=== PATIENT | male | born 1960 | race Caucasian/White ===

== ENCOUNTER → 2016-10-01 | Outpatient (CLI) | payer BC ==
[2016-10-01 18:34] LABS: Basophils % (A) 0 %; CH 32.6; CHCM 32.6; Eosinophils # (A) 0.4 k/uL (0-0.7); Eosinophils % (A) 6 %; HDW 2.27; HGB 16.3 gm/dL (13.0-17.5); Luc # (Auto) 0.16; Luc % (Auto) 3; Lymphocytes # (A) 1.8 k/uL (1.0-4.8); Lymphocytes % (A) 29 %; MCH 32.8 pg (25.0-35.0); MCHC 32.7 g/dL (31.0-37.0); MCV 100.4 fL (80.0-100.0); Mean Platelet Volume 7.8; Monocytes # (A) 0.6 k/uL (0-1.0); Monocytes % (A) 9 %; Neutrophils # (A) 3.3 k/uL (1.3-7.7); Neutrophils % (A) 53 %; RBC 4.98 m/uL (4.30-5.90); RDW 13.4 % (11.5-15.5); WBC 6.2 k/uL (3.8-10.6)
[2016-10-01 19:01] LABS: ALT 35 U/L (21-72); AST 26 U/L (17-59); Alkaline Phosphatase 109 U/L (38-126); Anion Gap 12 mmol/L; Blood Urea Nitrogen 31 mg/dL (9-20); Calcium 9.3 mg/dL (8.4-10.2); Carbon Dioxide 28 mmol/L (22-30); Chloride 102 mmol/L (98-107); Cholesterol 147 mg/dL (<200); Glucose 103 mg/dL (74-99); HDL Cholesterol 51 mg/dL (40-60); Non-African American GFR(MDRD) >60 (>60 ml/min/1.73 sqM); Potassium 3.7 mmol/L (3.5-5.1); Sodium 142 mmol/L (137-145); Total Bilirubin 1.1 mg/dL (0.2-1.3); Total Protein 6.8 g/dL (6.3-8.2); Triglycerides 126 mg/dL (<150)
[2016-10-01 19:33] LABS: Vitamin B12 382 pg/mL (239-931)
== END ==
LOC: MMGSC 15:31
PROVIDERS: ATTEND Family Medicine
DX: I10 Essential (primary) hypertension (principal); R53.83 Other fatigue; N40.0 Benign prostatic hyperplasia without lower urinary tract symptoms; Z12.5 Encounter for screening for malignant neoplasm of prostate
CPT/HCPCS: 84439; 80053; 80061; 82607; 84443; 85025; 82306; 36415; G0103

== ENCOUNTER 2016-10-07 07:10 | Emergency (ER) | payer BC ==
[2016-10-07 12:41] LABS: Creatine Kinase MB 2.3 ng/mL (0.0-2.4); Troponin I 0.022 ng/mL (0.000-0.034)
[2016-10-07 12:42] LABS: ALT 40 U/L (21-72); AST 29 U/L (17-59); Alkaline Phosphatase 105 U/L (38-126); Anion Gap 10 mmol/L; Blood Urea Nitrogen 21 mg/dL (9-20); Calcium 8.8 mg/dL (8.4-10.2); Carbon Dioxide 26 mmol/L (22-30); Chloride 106 mmol/L (98-107); Glucose 93 mg/dL (74-99); Non-African American GFR(MDRD) >60 (>60 ml/min/1.73 sqM); Potassium 4.2 mmol/L (3.5-5.1); Sodium 142 mmol/L (137-145); Total Bilirubin 0.6 mg/dL (0.2-1.3); Total Protein 6.9 g/dL (6.3-8.2)
--- NOTE | 2016-10-07 13:00 | XR ---
EXAMINATION TYPE: XR chest 2V DATE OF EXAM: 10/07/2016 COMPARISON: Prior chest x-ray 10/01/2016 HISTORY: Chest pain and shortness of breath TECHNIQUE: Frontal and lateral views of the chest are obtained. FINDINGS: Interstitium is increased. Heart size is thought to be borderline although patient is rota luis. There are overlying cardiac leads. No pneumothorax or pleural effusion. IMPRESSION: Correlate to exclude pulmonary venous hypertension and interstitial edema. Changes have occurred in the interval. Follow-up recommended.
[2016-10-07 13:09] LABS: Basophils % (A) 1 %; CH 31.8; CHCM 32.8; Eosinophils # (A) 0.3 k/uL (0-0.7); Eosinophils % (A) 3 %; HCT 46.6 % (39.0-53.0); HDW 2.42; HGB 16.3 gm/dL (13.0-17.5); Luc # (Auto) 0.15; Luc % (Auto) 2; Lymphocytes # (A) 1.9 k/uL (1.0-4.8); Lymphocytes % (A) 22 %; MCH 34.1 pg (25.0-35.0); MCHC 35.1 g/dL (31.0-37.0); MCV 97.4 fL (80.0-100.0); Mean Platelet Volume 8.1; Monocytes # (A) 0.4 k/uL (0-1.0); Monocytes % (A) 4 %; Neutrophils # (A) 5.9 k/uL (1.3-7.7); Neutrophils % (A) 68 %; RBC 4.78 m/uL (4.30-5.90); WBC 8.7 k/uL (3.8-10.6); WBC (Perox) 8.76
[2016-10-07 13:14] LABS: Partial Thromboplastin Time 25.3 sec (22.0-30.0); Prothrombin Time 10.1 sec (9.0-12.0)
--- NOTE | 2016-10-07 15:51 | ED ---
Medical Decision Making - Medical Decision Making The patient came injury computer downtime and several hours after he was discharged. Patient did have a d-dimer run. The result was 2.52. This was called to the emergency department. Attempt to call the patient back for evaluation as well as for failed. Messages have been left on his answering machine. We will continue to try to contact the patient. The patient's presentation today a CAT scan of the chest would be warranted the CT angiogram. - Lab Data Result diagrams: 10/07/16 07:30 10/07/16 07:30 Lab Results 10/07/16 10/07/16 10/07/16 Range/Units 07:30 07:30 07:30 WBC 8.7 (3.8-10.6) k/uL RBC 4.78 (4.30-5.90) m/uL Hgb 16.3 (13.0-17.5) gm/dL Hct 46.6 (39.0-53.0) % MCV 97.4 (80.0-100.0) fL MCH 34.1 (25.0-35.0) pg MCHC 35.1 (31.0-37.0) g/dL RDW 13.0 (11.5-15.5) % Plt Count 220 (150-450) k/uL Neutrophils % 68 % Lymphocytes % 22 % Monocytes % 4 % Eosinophils % 3 % Basophils % 1 % Neutrophils # 5.9 (1.3-7.7) k/uL Lymphocytes # 1.9 (1.0-4.8) k/uL Monocytes # 0.4 (0-1.0) k/uL Eosinophils # 0.3 (0-0.7) k/uL Basophils # 0.0 (0-0.2) k/uL PT (9.0-12.0) sec INR (<1.1) APTT (22.0-30.0) sec D-Dimer (<0.60) mg/L FEU Sodium 142 (137-145) mmol/L Potassium 4.2 (3.5-5.1) mmol/L Chloride 106 (98-107) mmol/L Carbon Dioxide 26 (22-30) mmol/L Anion Gap 10 mmol/L BUN 21 H (9-20) mg/dL Creatinine 1.10 (0.66-1.25) mg/dL Est GFR (MDRD) Af Amer >60 (>60 ml/min/1.73 sqM) Est GFR (MDRD) Non-Af >60 (>60 ml/min/1.73 sqM) Glucose 93 (74-99) mg/dL Calcium 8.8 (8.4-10.2) mg/dL Magnesium 2.0 (1.6-2.3) mg/dL Total Bilirubin 0.6 (0.2-1.3) mg/dL AST 29 (17-59) U/L ALT 40 (21-72) U/L Alkaline Phosphatase 105 (38-126) U/L Total Creatine Kinase 99 (55-170) U/L CK-MB (CK-2) 2.3 (0.0-2.4) ng/mL CK-MB (CK-2) Rel Index 2.3 Troponin I 0.022 (0.000-0.034) ng/mL NT-Pro-B Natriuret Pep pg/mL Total Protein 6.9 (6.3-8.2) g/dL Albumin 3.8 (3.5-5.0) g/dL 10/07/16 10/07/16 Range/Units 07:30 07:30 WBC (3.8-10.6) k/uL RBC (4.30-5.90) m/uL Hgb (13.0-17.5) gm/dL Hct (39.0-53.0) % MCV (80.0-100.0) fL MCH (25.0-35.0) pg MCHC (31.0-37.0) g/dL RDW (11.5-15.5) % Plt Count (150-450) k/uL Neutrophils % % Lymphocytes % % Monocytes % % Eosinophils % % Basophils % % Neutrophils # (1.3-7.7) k/uL Lymphocytes # (1.0-4.8) k/uL Monocytes # (0-1.0) k/uL Eosinophils # (0-0.7) k/uL Basophils # (0-0.2) k/uL PT 10.1 (9.0-12.0) sec INR 1.0 (<1.1) APTT 25.3 (22.0-30.0) sec D-Dimer 2.52 H (<0.60) mg/L FEU Sodium (137-145) mmol/L Potassium (3.5-5.1) mmol/L Chloride (98-107) mmol/L Carbon Dioxide (22-30) mmol/L Anion Gap mmol/L BUN (9-20) mg/dL Creatinine (0.66-1.25) mg/dL Est GFR (MDRD) Af Amer (>60 ml/min/1.73 sqM) Est GFR (MDRD) Non-Af (>60 ml/min/1.73 sqM) Glucose (74-99) mg/dL Calcium (8.4-10.2) mg/dL Magnesium (1.6-2.3) mg/dL Total Bilirubin (0.2-1.3) mg/dL AST (17-59) U/L ALT (21-72) U/L Alkaline Phosphatase (38-126) U/L Total Creatine Kinase (55-170) U/L CK-MB (CK-2) (0.0-2.4) ng/mL CK-MB (CK-2) Rel Index Troponin I (0.000-0.034) ng/mL NT-Pro-B Natriuret Pep 872 pg/mL Total Protein (6.3-8.2) g/dL Albumin (3.5-5.0) g/dL Disposition Clinical Impression: Elevated d-dimer Disposition: HOME SELF-CARE Condition: Stable Referrals: Carmina Hewitt MD [Primary Care Provider] - 1-2 days
== END 2016-10-07 11:36 | disposition home or self-care (01) ==
LOC: EC 07:10
DX: J44.1 Chronic obstructive pulmonary disease with (acute) exacerbation (principal); R74.8 Abnormal levels of other serum enzymes; I10 Essential (primary) hypertension; F17.200 Nicotine dependence, unspecified, uncomplicated; Z79.899 Other long term (current) drug therapy
CPT/HCPCS: 36415; 71020; 80053; 82550; 82553; 83735; 83880; 84484; 85025; 85379; 85610; 85730; 93005; 94640; 96361; 96374; 96375; 99285

== ENCOUNTER 2016-10-07 20:48 | Emergency (ER) | payer BC ==
[2016-10-07] MEDS ORDERED: SODIUM CHLORIDE 0.9% 1,000 ML IV STA (21:10)
[2016-10-07] MEDS ORDERED: RX INFO: IV CONTRAST WAS GIVEN 1 EACH MISC MISCELLANE PRN (21:10)
--- NOTE | 2016-10-07 21:10 | ED ---
General Adult HPI - General Chief complaint: Recheck/Abnormal Lab/Rx Stated complaint: Elevated d-dimer Time Seen by Provider: 10/07/16 20:57 Source: patient, RN notes reviewed Mode of arrival: ambulatory Limitations: no limitations - History of Present Illness Initial comments: Patient is a pleasant 56-year-old male presenting to the emergency department after being called. Patient was in the emergency department earlier today. Patient did have difficulty breathing and wheezing. Patient states he had some tightness in his chest. Patient states chest tightness resolved with nebulizer treatment. Patient states dyspnea has been near resolved since that time except does return somewhat with exertion. Patient has had dry nonproductive cough for the past several days. Patient has stopped smoking the past couple of days secondary to dyspnea. No chest discomfort since nebulizer treatment this morning. Patient does have chronic high blood pressure and just started blood pressure medication 2 days ago. - Related Data Home Medications Medication Instructions Recorded Confirmed Aspirin 325 mg PO DAILY 10/07/16 10/07/16 Dutasteride [Avodart] 0.5 mg PO HS 10/07/16 10/07/16 cloNIDine HCL [Catapres] 0.1 mg PO BID 10/07/16 10/07/16 Allergies Allergy/AdvReac Type Severity Reaction Status Date / Time metoprolol Allergy Dyspnea Verified 10/07/16 21:31 Review of Systems ROS Statement: Those systems with pertinent positive or pertinent negative responses have been documented in the HPI. ROS Other: All systems not noted in ROS Statement are negative. Constitutional: Denies: fever Eyes: Denies: eye pain ENT: Denies: ear pain Respiratory: Reports: cough, dyspnea Cardiovascular: Denies: palpitations Endocrine: Denies: fatigue Gastrointestinal: Denies: abdominal pain Genitourinary: Denies: dysuria Musculoskeletal: Denies: back pain Skin: Denies: rash Neurological: Denies: weakness Past Medical History Past Medical History: No Reported History History of Any Multi-Drug Resistant Organisms: None Reported Past Surgical History: No Surgical Hx Reported Past Psychological History: No Psychological Hx Reported Smoking Status: Current every day smoker Past Alcohol Use History: None Reported Past Drug Use History: None Reported General Exam Limitations: no limitations General appearance: alert, in no apparent distress Head exam: Present: atraumatic Eye exam: Present: normal appearance, PERRL ENT exam: Present: normal oropharynx Neck exam: Present: normal inspection Respiratory exam: Present: rhonchi Cardiovascular Exam: Present: regular rate, normal rhythm Expanded Peripheral pulses: 2+: Radial (R), Radial (L) GI/Abdominal exam: Present: soft. Absent: tenderness Extremities exam: Present: normal inspection. Absent: pedal edema, calf tenderness Back exam: Present: normal inspection Neurological exam: Present: alert Psychiatric exam: Present: normal affect, normal mood Skin exam: Present: normal color Course Vital Signs 10/07/16 10/07/16 10/07/16 20:56 21:22 21:42 Temperature 98 F Pulse Rate 96 86 88 Respiratory 18 20 20 Rate Blood Pressure 161/104 169/103 182/112 O2 Sat by Pulse 100 97 98 Oximetry 10/07/16 10/07/16 10/07/16 22:13 23:33 23:53 Temperature Pulse Rate 82 77 77 Respiratory 18 18 18 Rate Blood Pressure 159/98 147/92 137/88 O2 Sat by Pulse 97 97 98 Oximetry 10/08/16 00:19 Temperature Pulse Rate 77 Respiratory 18 Rate Blood Pressure 135/86 O2 Sat by Pulse 96 Oximetry EKG Findings - EKG Comments: EKG Findings:: Normal sinus rhythm 84. Normal intervals. Left axis. Full described here for LVH. Nonspecific T waves. Medical Decision Making - Medical Decision Making Patient reexamined and blood pressure remains high. Patient will be provided further medication before probable discharge. Left anterior chest wall does have soft tissue mass. Patient states this is known and has been surgically removed. Patient was told that withdrawal back and does have an appointment already set up to see his surgeon again. - Lab Data Lab Results 10/07/16 10/07/16 Range/Units 21:20 21:20 Magnesium 2.0 (1.6-2.3) mg/dL Total Creatine Kinase 90 (55-170) U/L CK-MB (CK-2) 2.1 (0.0-2.4) ng/mL CK-MB (CK-2) Rel Index 2.3 Troponin I <0.012 (0.000-0.034) ng/mL - Radiology Data Radiology results: image reviewed (Computed tomography scan the chest shows no pulmonary embolism. Soft tissue mass left anterior chest wall.) Disposition Clinical Impression: Acute bronchitis, Hypertension Disposition: HOME SELF-CARE Condition: Stable Instructions: Acute Bronchitis (ED), Hypertension (ED) Additional Instructions: Please follow-up with your primary care physician in the morning. Please discuss blood pressure medications with her doctor. Return for difficulty in breathing, fevers, worsening symptoms or other concerns. Please follow-up with your surgeon as scheduled. Referrals: Carmina Hewitt MD [Primary Care Provider] - 1-2 days Time of Disposition: 00:23
[2016-10-07] MEDS ORDERED: ENALAPRILAT 1.25 MG/ML 1 ML VIAL IVP STA (21:13)
[2016-10-07 22:10] LABS: Creatine Kinase MB 2.1 ng/mL (0.0-2.4); Troponin I <0.012 ng/mL (0.000-0.034)
[2016-10-07 22:13] LABS: Creatine Kinase 90 U/L (55-170)
[2016-10-07 22:14] VITALS: RESP 18
--- NOTE | 2016-10-07 23:01 | CT ---
EXAM: CT Chest With Intravenous Contrast CLINICAL HISTORY: Reason: pe protocol TECHNIQUE: Axial computed tomography images of the chest with intravenous contrast during the arterial phase of enhancement. Coronal and sagittal reformats submitted. CTDI is 47.60 mGy and DLP is 369.50 mGy-cm. This CT exam was performed using one or more of the following dose reduction techniques: automated exposure control, adjustment of the mA and/or kV according to patient size, and/or use of iterative reconstruction technique. COMPARISON: No relevant prior studies available. FINDINGS: Pulmonary arteries: Unremarkable. No pulmonary embolism. Aorta: No acute findings. No thoracic aortic aneurysm. Lungs: Mild subsegmental atelectasis at the posterior lower lobes. No mass. No consolidation. Pleural space: Very small right pleural effusion posteriorly. No pneumothorax. Heart: Unremarkable. No cardiomegaly. No significant pericardial effusion. No evidence of RV dysfunction. Bones/joints: No acute fracture. No dislocation. Soft tissues: 3.7 x 2.0 cm lobulated soft tissue mass in the superficial subcutaneous tissues of the left anterior chest. Lymph nodes: Unremarkable. No enlarged lymph nodes. IMPRESSION: No PE. Subsegmental atelectasis at the bases and very small right pleural effusion. 3.7 cm soft tissue mass in the left chest wall subcutaneous tissues anteriorly. Differential would include gynecomastia but given asymmetry, tumor is not excluded. Suggest further workup.
[2016-10-07] MEDS ORDERED: hydrALAZINE HCL 20 MG/ML 1 ML VIAL IVP STA (23:11)
[2016-10-07 23:34] VITALS: PULSE 77
[2016-10-08 00:20] VITALS: BP 135/86
[2016-10-08 00:34] VITALS: TEMP 98.7
== END 2016-10-08 00:33 | disposition home or self-care (01) ==
LOC: EC 20:48
DX: J20.9 Acute bronchitis, unspecified (principal); I10 Essential (primary) hypertension; F17.200 Nicotine dependence, unspecified, uncomplicated; Z88.8 Allergy status to other drugs, medicaments and biological substances; Z79.82 Long term (current) use of aspirin; Z79.899 Other long term (current) drug therapy
CPT/HCPCS: 99284; 96374; 96361 ×2; 36415; 93005; 82550; 82553; 83735; 84484; 71275; Q9967

== ENCOUNTER → 2016-10-23 | Outpatient (CLI) | payer BC ==
--- NOTE | 2016-10-23 11:16 | NM ---
EXAMINATION TYPE: NM stress cardiolite complete DATE OF EXAM: 10/23/2016 COMPARISON: NONE HISTORY: 56-year-old male with hypertension TECHNIQUE: After the intravenous administration of 10.9 mCi Tc 99m Sestamibi - Rest images obtained 45 minutes post injection. The patient exercised using a MICHAEL protocol and 1 minute prior to peak exercise was injected with 26.1 mCi Tc 99m Sestamibi - Stress images obtained 10 minutes post injecti on. FINDINGS: Targeted heart rate was achieved during performance of the study. Exercise time was 10 minutes 41 sec onds with 86% maximal heart rate achieved and 12.1 METs. The technologist notes PVCs during the exercise stress. Review of stress and rest SPECT images demonstrates fixed perfusion abnormality along the mid to basa l inferior wall. Possible small area of reversibility along the cardiac apex. Gated analysis shows some mild global hypokinesis with an estimated left ventricular ejection fractio n of 37 %. TID is calculated at 0.88, within normal limits. IMPRESSION: 1. Possible small area of reversibility at the cardiac apex not confirmed on polar maps. Further clin ical and EKG correlation recommended. 2. Fixed perfusion defect mid to basal inferior wall. Correlate for a prior inferior wall infarct. 3. LVEF estimated at 37%.
--- NOTE | 2016-10-23 11:42 | P.STRESS ---
- Stress Test Note Stress Test Results/Findings: Exam Performed: NM stress cardiolite complete Exam Date: 10/23/16 Height: 5 ft 10 in Weight: 88.451 kg Protocol: montse Stage: 4 Duration of Exercise: 10:41 Resting Heart Rate: 78 Resting Blood Pressure: 133/48 Maximum Achieved Heart Rate: 144 Maximum Achieved Blood Pressure: 183/120 85% PMHR: 141 100% PMHR: 166 METS: 12.1 Technologist Comment: Stress Test Results/Findings: Baseline rhythm is sinus mechanism, left axis deviation, poor R-wave progression , occasional PVCs. Patient reached 86% maximum predicted heart rate. At peak exercise there was no evidence of ischemic ST segment changes. Cardiolite was injected at peak exercise. Impression: 1. Average exercise tolerance with normal EKG response. 2. Nuclear images will be reported separately.
--- NOTE | 2016-10-23 16:48 | EST ---
Stress Test Results/Findings: Exam Performed: KS stress cardiolite complete Exam Date: 10/23/16 Height: 5 ft 10 in Weight: 88.451 kg Protocol: montse Stage: 4 Duration of Exercise: 10:41 Resting Heart Rate: 78 Resting Blood Pressure: 133/48 Maximum Achieved Heart Rate: 144 Maximum Achieved Blood Pressure: 183/120 85% PMHR: 141 100% PMHR: 166 METS: 12.1 Technologist Comment: Stress Test Results/Findings: Baseline rhythm is sinus mechanism, left axis deviation, poor R-wave progression , occasional PVCs. Patient reached 86% maximum predicted heart rate. At peak exercise there was no evidence of ischemic ST segment changes. Cardiolite was injected at peak exercise. Impression: 1. Average exercise tolerance with normal EKG response. 2. Nuclear images will be reported separately. KARSTEN
== END | disposition home or self-care (01) ==
LOC: RADNMMAIN 07:59
PROVIDERS: ATTEND Family Medicine
DX: I21.19 ST elevation (STEMI) myocardial infarction involving other coronary artery of inferior wall (principal)
CPT/HCPCS: 93017; 78452; A9500

== ENCOUNTER → 2016-11-08 | Day surgery (SDC) | payer BC ==
[2016-11-05 16:04] VITALS: BMI 29.5
[~2016-11-08] MED LIST: ALPRAZolam 0.25 MG TAB PO PRN; ALPRAZolam 0.5 MG TAB PO PRN; ASPIRIN 325 MG TAB PO STA; ATORVASTATIN 80 MG TAB PO STA; CARVEDILOL 3.125 MG TAB PO ONE; CARVEDILOL 3.125 MG TAB PO STA; IOHEXOL 350 MG/ML 125ML BOTTLE INJ ONE; LIDOCAINE 2% INJ 20 MG/ML (20 ML MDV) ONE; LIDOCAINE 2% INJ 20 MG/ML SQ ONE; MIDAZOLAM 2 MG/2 ML VIAL IV ONE; MIDAZOLAM 2 MG/2 ML VIAL ONE; NITROGLYCERIN 1000MCG/10ML SYRINGE INTRACORON ONE; NITROGLYCERIN SL TABS 0.4 MG TAB SUBLINGUAL PRN; RX INFO: IV CONTRAST WAS GIVEN 1 EACH MISC MISCELLANE PRN; SODIUM CHLORIDE 0.9% 1,000 ML IV SCH; SODIUM CHLORIDE 0.9% 1,000 ML in EMPTY BAG 1 BAG IV ONE; fentaNYL (PF) 50 MCG/ML 2 ML AMP ONE
[2016-11-08 08:29] VITALS: RESP 18
[2016-11-08 08:56] LABS: Anion Gap 8 mmol/L; Blood Urea Nitrogen 21 mg/dL (9-20); Calcium 9.1 mg/dL (8.4-10.2); Carbon Dioxide 27 mmol/L (22-30); Chloride 105 mmol/L (98-107); Glucose 94 mg/dL (74-99); Non-African American GFR(MDRD) >60 (>60 ml/min/1.73 sqM); Potassium 3.9 mmol/L (3.5-5.1); Sodium 140 mmol/L (137-145)
[2016-11-08 08:58] LABS: Basophils % (A) 0 %; CH 32.3; CHCM 33.9; Eosinophils # (A) 0.3 k/uL (0-0.7); Eosinophils % (A) 4 %; HCT 48.8 % (39.0-53.0); HDW 2.36; HGB 16.2 gm/dL (13.0-17.5); Luc # (Auto) 0.18; Luc % (Auto) 3; Lymphocytes # (A) 1.9 k/uL (1.0-4.8); Lymphocytes % (A) 26 %; MCH 31.9 pg (25.0-35.0); MCHC 33.3 g/dL (31.0-37.0); MCV 95.8 fL (80.0-100.0); Mean Platelet Volume 7.1; Monocytes # (A) 0.5 k/uL (0-1.0); Monocytes % (A) 7 %; Neutrophils # (A) 4.4 k/uL (1.3-7.7); Neutrophils % (A) 60 %; RBC 5.09 m/uL (4.30-5.90); RDW 13.5 % (11.5-15.5); WBC 7.3 k/uL (3.8-10.6); WBC (Perox) 6.85
[2016-11-08] MEDS: fentaNYL (PF) 50 MCG/ML 2 ML AMP IV ONE ×2 (09:05→09:20)
--- NOTE | 2016-11-08 10:05 | P.PCN ---
Date of Procedure: 11/08/16 Preoperative Diagnosis: Cardiomyopathy, positive stress test Postoperative Diagnosis: Mild coronary artery disease and cardiomyopathy. Bicuspid aortic valve Procedure(s) Performed: Left heart catheterization with left ventriculography Implants: Indications for Procedure: Operative Findings: Description of Procedure: HISTORY: This is a 56-year-old gentleman with history of hypertension who has developed symptoms of congestive heart failure and evidence of cardiomyopathy. Stress test showed evidence of possible ischemia of apex and a possible old inferior wall WI. Patient is advised to have cardiac catheterization for definitive diagnosis. CONSENT:I have discussed the risks, benefits and alternative therapies for the above-mentioned procedure and for both sedation/analgesia as well as necessary blood product administration, if indicated, as they pertain to this patient. The patient has indicated understanding and acceptance of the risks and procedures discussed. PROCEDURE: Patient was brought to the lab in a fasting state. Patient was given some IV sedation. The right groin is infiltrated with lidocaine and right femoral artery was entered using Seldinger technique. A 6-Serbian catheter was left in place and selective coronary arteriography and left ventriculography was performed. Patient tolerated the procedure well. Femoral angiogram was performed and Angio-Seal was applied for hemostasis. No immediate complications were noted and patient was transferred to [facility] in a stable condition Conscious Sedation: Versed : 2 mg mg Fentanyl: 50 micrograms Duration : 44 minutes minutes HEMODYNAMICS: The aortic pressure is 130/70. Left ankle end-diastolic pressure is about 12 to 16. There was no gradient across the aortic valve SELECTIVE CORONARY ARTERIOGRAPHY: LEFT MAIN: This is a normal length and patent. THE LEFT ANTERIOR DESCENDING CORONARY ARTERY: This is a good caliber vessel in the proximal portion but becomes small in the mid and distal portion. Doesn't actually reaches the apex. There is mild disease in the distal LAD with probably some spasm. Injections of IV nitroglycerin didn't improve the size of the vessel. THE LEFT CIRCUMFLEX AND IS CORONARY ARTERY: This is a nondominant vessel free of any significant occlusive disease THE RIGHT CORONARY ARTERY: . This is a dominant vessel giving rise to good-sized PDA and PLV branches. There is also ectatic. Nausea. No significant obstructive disease LEFT VENTRICULOGRAPHY: . This revealed mildly dilated left ventricle with evidence of hypertrophy and diffuse hypokinesia consistent with a non-ischemic cardiomyopathy. Ejection fraction about 30-35% FINAL IMPRESSION: #1. Mild coronary artery disease. #2. Nonischemic cardiomyopathy. #3. Bicuspid aortic valve. #4. The aortic root appears to be dilated PLAN: Maximum medical therapy. I will add small dose of beta vinod in the form of Coreg and see if he can tolerate. This factor modification PROGNOSIS: Guarded
[2016-11-08 10:17] VITALS: TEMP 98.2
[2016-11-08 14:50] VITALS: BP 130/86; PULSE 76
== END ==
LOC: CATHCVL 08:08
PROVIDERS: ATTEND Internal Medicine Cardiovascular Disease
DX: I25.10 Atherosclerotic heart disease of native coronary artery without angina pectoris (principal); Q23.1 Congenital insufficiency of aortic valve; I50.42 Chronic combined systolic (congestive) and diastolic (congestive) heart failure; I42.2 Other hypertrophic cardiomyopathy; F17.210 Nicotine dependence, cigarettes, uncomplicated; I10 Essential (primary) hypertension; Z79.899 Other long term (current) drug therapy
CPT/HCPCS: 93458; 80048; 85025; 99152; 99153 ×2; C1760; C1769 ×3; C1894; J2001; J2250; J3010; Q9967

== ENCOUNTER → 2017-02-26 | Outpatient (CLI) | payer BC | END | disposition home or self-care (01) | LOC: MMGSC 16:50 | PROVIDERS: ATTEND Family Medicine | DX: E55.9 Vitamin D deficiency, unspecified (principal); R97.20 Elevated prostate specific antigen [PSA] | CPT/HCPCS: 36415; 82306; 84153 ==

== ENCOUNTER → 2017-02-28 | Outpatient (CLI) | payer SELFPAY ==
--- NOTE | 2017-02-28 13:10 | XR ---
EXAMINATION TYPE: XR thoracic spine complete DATE OF EXAM: 02/28/2017 COMPARISON: NONE HISTORY: Pain TECHNIQUE: 3 view thoracic spine FINDINGS: There are 12 thoracic type vertebral bodies. The pedicles are intact. There is mild narrowi ng of disc height. Mild spondylosis is present. Exam is supplemented with a transthoracic swimmer's v iew. Alignment is essentially normal. IMPRESSION: 1. Mild degenerative disc changes and spondylosis thoracic spine
== END | disposition home or self-care (01) ==
LOC: RADXRMAIN 12:04
PROVIDERS: ATTEND Family Medicine
DX: M47.814 Spondylosis without myelopathy or radiculopathy, thoracic region (principal)
CPT/HCPCS: 72072

== ENCOUNTER 2017-09-22 21:49 | Emergency (ER) | payer OTHER ==
--- NOTE | 2017-09-22 22:37 | ED ---
Extremity Problem HPI - General Chief complaint: Extremity Problem,Nontraumatic Stated complaint: Leg Pain Time Seen by Provider: 09/22/17 22:24 Source: patient, RN notes reviewed Mode of arrival: ambulatory Limitations: no limitations - History of Present Illness Initial comments: This is a 57-year-old male who presents to emergency department with chief complaint of right lower extremity pain. Patient states that he has been having tenderness, swelling and redness to the right lower extremity. He denies history of blood clots. Denies coagulopathies. Denies recent surgeries or hospitalizations. Denies any recent injuries or trauma. Denies fevers or chills, chest pain or shortness of breath, abdominal pain, nausea or vomiting. - Related Data Home Medications Medication Instructions Recorded Confirmed Dutasteride [Avodart] 0.5 mg PO HS 10/07/16 02/10/17 cloNIDine HCL [Catapres] 0.1 mg PO HS 10/07/16 02/10/17 Potassium Chloride [K-Tab ER] 8 meq PO DAILY 11/05/16 02/10/17 Hydrochlorothiazide [Hydrodiuril] 12.5 mg PO DAILY 02/10/17 02/10/17 amLODIPine BESYLATE/BENAZEPRIL 1 cap PO DAILY 02/10/17 02/10/17 [Lotrel 5-10 mg Capsule] Previous Rx's Medication Instructions Recorded Carvedilol [Coreg] 3.125 mg PO BID #60 tablet 11/08/16 Cyclobenzaprine [Flexeril] 10 mg PO TID #20 tab 02/10/17 Ibuprofen [Motrin] 600 mg PO Q6HR PRN #40 day 02/10/17 Cephalexin [Keflex] 500 mg PO Q12HR #20 cap 09/23/17 Allergies Allergy/AdvReac Type Severity Reaction Status Date / Time metoprolol Allergy Dyspnea Verified 09/22/17 22:03 Review of Systems ROS Statement: Those systems with pertinent positive or pertinent negative responses have been documented in the HPI. ROS Other: All systems not noted in ROS Statement are negative. Past Medical History Past Medical History: Hypertension, Myocardial Infarction (CT), Prostate Disorder Last Myocardial Infarction Date:: 09/2016 History of Any Multi-Drug Resistant Organisms: None Reported Past Surgical History: Orthopedic Surgery Additional Past Surgical History / Comment(s): right arm Past Anesthesia/Blood Transfusion Reactions: No Reported Reaction Past Psychological History: Anxiety Smoking Status: Current every day smoker Past Alcohol Use History: None Reported Past Drug Use History: None Reported - Past Family History Father Family Medical History: Cancer Additional Family Medical History / Comment(s): prostate General Exam - General Exam Comments Initial Comments: General: Awake and alert, well-developed; in no apparent distress. HEENT: Head atraumatic, normocephalic. Pupils are equal, round and reactive to light. Extraocular movements intact. Oropharynx moist without erythema or exudate. Neck: Supple. Normal ROM. Cardiovascular: Regular rate and rhythm. No murmurs, rubs or gallops. Chest symmetrical. Pedal pulses are 2+ equal and palpable bilaterally. Respiratory: Lungs clear to auscultation bilaterally. No wheezes, rales or rhonchi. Normal respiratory effort with no use of accessory muscles. Musculoskeletal: Normal ROM of the right lower extremity. Ambulating normally. Skin: Erythema measuring approximately 8.5 cm in diameter, swelling, warmth and tenderness to the right lateral calf. Neurological: Alert and oriented x3. CN II-XII grossly intact. Speech is fluent and answers are appropriate. No focal neuro deficits. Psychiatric: Normal mood and affect. No overt signs of depression or anxiety noted. Limitations: no limitations Course Vital Signs 09/22/17 22:01 Temperature 98.3 F Pulse Rate 95 Respiratory 18 Rate Blood Pressure 151/100 O2 Sat by Pulse 98 Oximetry Medical Decision Making - Medical Decision Making This is a 57-year-old male who presented to the emergency department with chief complaint of right lower extremity pain. Patient developed redness, swelling and pain to the right lower extremity 3 days ago. On physical examination, there is an area of redness, erythema, warmth and tenderness to the right lateral calf. Patient is neurovascularly intact. Ultrasound venous Doppler revealed no evidence for acute DVT. Patient suffering from cellulitis. He will be started on Keflex. Recommended elevation and anti-inflammatories to reduce swelling. Return parameters were discussed. Patient is to monitor for spreading of area of erythema. Area was marked with a skin marker. Vital signs are stable and he is in no acute distress. He'll be discharged home at this time. He is in agreement with plan and voices understanding. All questions answered. - Radiology Data Radiology results: report reviewed Ultrasound venous Doppler right lower extremity impression: No evidence of deep venous thrombosis. Enlarged right inguinal lymph node. Disposition Clinical Impression: Cellulitis Disposition: HOME SELF-CARE Condition: Good Instructions: Cellulitis (ED) Additional Instructions: Please take medications as prescribed. Please follow up with primary care provider within 1-2 days. Return to emergency department if symptoms should worsen or any concerns arise. Prescriptions: Cephalexin [Keflex] 500 mg PO Q12HR #20 cap Is patient prescribed a controlled substance at d/c from ED?: No Referrals: Carmina Hewitt MD [Primary Care Provider] - 1-2 days Time of Disposition: 00:13
[2017-09-22] MEDS ORDERED: KETOROLAC 30 MG/ML 1 ML VIAL IM STA (23:27)
--- NOTE | 2017-09-23 00:03 | US ---
EXAMINATION TYPE: US venous doppler duplex LE RT DATE OF EXAM: 09/22/2017 10:36 PM COMPARISON: NONE CLINICAL HISTORY: Pain swelling, and redness right leg . SIDE PERFORMED: Right TECHNIQUE: The lower extremity deep venous system is examined utilizing real time linear array sonog astrid with graded compression, doppler sonography and color-flow sonography. VESSELS IMAGED: External Iliac Vein (EIV) Common Femoral Vein Deep Femoral Vein Greater Saphenous Vein * Femoral Vein Popliteal Vein Small Saphenous Vein * Proximal Calf Veins (* superficial vessels) Right Leg: Negative for DVT Within the right groin, there is a probable lymph node visualized measuring 2.7 x 1.0 x 2.4 IMPRESSION: No evidence of deep venous thrombosis. Enlarged right inguinal lymph node.
[2017-09-23] MEDS ORDERED: cefTRIAXone 1,000 MG VIAL (IM USE) IM STA (00:12)
[2017-09-23] MEDS ORDERED: CEPHALEXIN 500 MG CAP PO STA (00:12)
[2017-09-23 00:57] VITALS: BP 168/90; PULSE 88; RESP 20; TEMP 98
== END 2017-09-23 00:57 | disposition home or self-care (01) ==
LOC: EC 21:49
DX: L03.115 Cellulitis of right lower limb (principal); I10 Essential (primary) hypertension; I25.2 Old myocardial infarction; F41.9 Anxiety disorder, unspecified; N42.9 Disorder of prostate, unspecified; F17.200 Nicotine dependence, unspecified, uncomplicated; Z79.899 Other long term (current) drug therapy; Z88.8 Allergy status to other drugs, medicaments and biological substances
CPT/HCPCS: 93971; 99283; 96372 ×2; J0696; J1885

== ENCOUNTER 2017-09-28 05:17 | Emergency (ER) | payer OTHER ==
--- NOTE | 2017-09-28 05:33 | ED ---
General Adult HPI - General Source: patient, RN notes reviewed Mode of arrival: ambulatory Limitations: no limitations <Franklyn Vaughan - Last Filed: 09/28/17 06:56> <Chepe Calvert - Last Filed: 09/28/17 08:16> - General Chief complaint: Extremity Problem,Nontraumatic Stated complaint: right leg pain Time Seen by Provider: 09/28/17 05:20 - History of Present Illness Initial comments: This is a 57-year-old male who states he was recently in the emergency department and was told he had cellulitis. Patient was taking Keflex for the cellulitis and has not improved. Patient states he's been on his leg all day now the whole leg is red around the whole circumference. Patient states she has no pain or redness about the knee. Patient denies any other symptoms such as abdominal pain or back pain. Patient states she just has swelling of the right lower leg. Patient says erythema is circumferential but started in the calf area. Patient denies any fever or chills. (Franklyn Vaughan) - Related Data Home Medications Medication Instructions Recorded Confirmed Dutasteride [Avodart] 0.5 mg PO HS 10/07/16 09/28/17 cloNIDine HCL [Catapres] 0.1 mg PO HS 10/07/16 09/28/17 Potassium Chloride [K-Tab ER] 8 meq PO DAILY 11/05/16 09/28/17 Hydrochlorothiazide [Hydrodiuril] 12.5 mg PO DAILY 02/10/17 09/28/17 amLODIPine BESYLATE/BENAZEPRIL 1 cap PO DAILY 02/10/17 09/28/17 [Lotrel 5-10 mg Capsule] Previous Rx's Medication Instructions Recorded Carvedilol [Coreg] 3.125 mg PO BID #60 tablet 11/08/16 Cyclobenzaprine [Flexeril] 10 mg PO TID #20 tab 02/10/17 Ibuprofen [Motrin] 600 mg PO Q6HR PRN #40 day 02/10/17 Cephalexin [Keflex] 500 mg PO Q12HR #20 cap 09/23/17 Cephalexin [Keflex] 500 mg PO Q6HR #40 cap 09/28/17 Clindamycin [Cleocin] 450 mg PO Q8H #30 capsule 09/28/17 Allergies Allergy/AdvReac Type Severity Reaction Status Date / Time metoprolol Allergy Dyspnea Verified 09/22/17 22:03 Review of Systems ROS Other: All systems not noted in ROS Statement are negative. <VaughanFranklyn - Last Filed: 09/28/17 06:56> ROS Other: All systems not noted in ROS Statement are negative. <Chepe Calvert - Last Filed: 09/28/17 08:16> ROS Statement: Those systems with pertinent positive or pertinent negative responses have been documented in the HPI. Past Medical History Past Medical History: Hypertension, Myocardial Infarction ([place]), Prostate Disorder Last Myocardial Infarction Date:: 09/2016 History of Any Multi-Drug Resistant Organisms: None Reported Past Surgical History: Orthopedic Surgery Additional Past Surgical History / Comment(s): right arm Past Anesthesia/Blood Transfusion Reactions: No Reported Reaction Past Psychological History: Anxiety Smoking Status: Current every day smoker Past Alcohol Use History: None Reported Past Drug Use History: None Reported - Past Family History Father Family Medical History: Cancer Additional Family Medical History / Comment(s): prostate <VaughanFranklyn - Last Filed: 09/28/17 06:56> General Exam Limitations: no limitations <ClementFranklyn - Last Filed: 09/28/17 06:56> <Chepe Calvert - Last Filed: 09/28/17 08:16> - General Exam Comments Initial Comments: GENERAL: Patient is well-developed and well-nourished. Patient is nontoxic and well- hydrated and is in mild distress. ENT: Neck is soft and supple. No significant lymphadenopathy is noted. Oropharynx is clear. Moist mucous membranes. Neck has full range of motion without eliciting any pain. EYES: The sclera were anicteric and conjunctiva were pink and moist. Extraocular movements were intact and pupils were equal round and reactive to light. Eyelids were unremarkable. PULMONARY: Unlabored respirations. Good breath sounds bilaterally. No audible rales rhonchi or wheezing was noted. CARDIOVASCULAR: There is a regular rate and rhythm without any murmurs gallops or rubs. ABDOMEN: Soft and nontender with normal bowel sounds. No palpable organomegaly was noted. There is no palpable pulsatile mass. SKIN: Skin is clear with no lesions or rashes and otherwise unremarkable. NEUROLOGIC: Patient is alert and oriented x3. Cranial nerves II through XII are grossly intact. Motor and sensory are also intact. Normal speech, volume and content. Symmetrical smile. Cerebellar exam grossly intact. MUSCULOSKELETAL: Right leg is edematous from the knee down and erythematous circumferentially around the leg. PSYCHIATRIC: Normal psychiatric evaluation. (Franklyn Vaughan) Vital Signs 09/28/17 09/28/17 05:20 06:58 Temperature 98.2 F Pulse Rate 89 85 Respiratory 20 18 Rate Blood Pressure 160/90 160/96 O2 Sat by Pulse 97 98 Oximetry Medical Decision Making - Lab Data Result diagrams: 09/28/17 05:53 09/28/17 05:53 <Franklyn Vaughan - Last Filed: 09/28/17 06:56> - Lab Data Result diagrams: 09/28/17 05:53 09/28/17 05:53 <Chepe Calvert - Last Filed: 09/28/17 08:16> - Medical Decision Making Dr. Calvert will be taking over the care of this patient at 7 AM (Franklyn Vaughan) Case signed out awaiting ultrasound of the right lower extremity. Patient has swelling beginning just distal to the knee and progressing to the ankle. There is erythema. There is some warmth as well. There is concern for DVT in this extremity as the d-dimer is elevated at 5. Ultrasound is obtained and this is negative for acute DVT. Patient has normal white blood cell count, stable hemoglobin. Creatinine is 1.45 from recent creatinine of 0.9. Does receive some IV hydration. Patient has been on Keflex 500 mg twice a day, this has not improved his symptoms. He will be switched to a dose of Keflex 500 mg 4 times daily and clindamycin will be added. Patient is offered admission for IV antibiotics, he declines would prefer outpatient treatment. (Chepe Calvert ) - Lab Data Lab Results 09/28/17 09/28/17 09/28/17 Range/Units 05:53 05:53 05:53 WBC 9.7 (3.8-10.6) k/uL RBC 4.38 (4.30-5.90) m/uL Hgb 14.2 (13.0-17.5) gm/dL Hct 41.3 (39.0-53.0) % MCV 94.4 (80.0-100.0) fL MCH 32.5 (25.0-35.0) pg MCHC 34.4 (31.0-37.0) g/dL RDW 12.8 (11.5-15.5) % Plt Count 264 (150-450) k/uL Neutrophils % 66 % Lymphocytes % 20 % Monocytes % 8 % Eosinophils % 4 % Basophils % 0 % Neutrophils # 6.4 (1.3-7.7) k/uL Lymphocytes # 1.9 (1.0-4.8) k/uL Monocytes # 0.7 (0-1.0) k/uL Eosinophils # 0.4 (0-0.7) k/uL Basophils # 0.0 (0-0.2) k/uL D-Dimer 5.02 H (<0.60) mg/L FEU Sodium 140 (137-145) mmol/L Potassium 3.6 (3.5-5.1) mmol/L Chloride 100 (98-107) mmol/L Carbon Dioxide 30 (22-30) mmol/L Anion Gap 10 mmol/L BUN 40 H (9-20) mg/dL Creatinine 1.45 H (0.66-1.25) mg/dL Est GFR (CKD-EPI)AfAm 62 (>60 ml/min/1.73 sqM) Est GFR (CKD-EPI)NonAf 54 (>60 ml/min/1.73 sqM) Glucose 118 H (74-99) mg/dL Calcium 8.7 (8.4-10.2) mg/dL Total Bilirubin 1.2 (0.2-1.3) mg/dL AST 26 (17-59) U/L ALT 35 (21-72) U/L Alkaline Phosphatase 79 (38-126) U/L Total Protein 6.7 (6.3-8.2) g/dL Albumin 3.8 (3.5-5.0) g/dL Disposition <Franklyn Vaughan - Last Filed: 09/28/17 06:56> Is patient prescribed a controlled substance at d/c from ED?: No Time of Disposition: 08:16 <Chepe Calvert - Last Filed: 09/28/17 08:16> Clinical Impression: Cellulitis Disposition: HOME SELF-CARE Condition: Fair Instructions: Cellulitis (ED) Prescriptions: Cephalexin [Keflex] 500 mg PO Q6HR #40 cap Clindamycin [Cleocin] 450 mg PO Q8H #30 capsule Referrals: Carmina Hewitt MD [Primary Care Provider] - 1-2 days
[2017-09-28 06:24] LABS: Basophils % (A) 0 %; Eosinophils # (A) 0.4 k/uL (0-0.7); Eosinophils % (A) 4 %; HCT 41.3 % (39.0-53.0); HGB 14.2 gm/dL (13.0-17.5); Lymphocytes # (A) 1.9 k/uL (1.0-4.8); Lymphocytes % (A) 20 %; MCH 32.5 pg (25.0-35.0); MCHC 34.4 g/dL (31.0-37.0); MCV 94.4 fL (80.0-100.0); Mean Platelet Volume 6.6; Monocytes # (A) 0.7 k/uL (0-1.0); Monocytes % (A) 8 %; Neutrophils # (A) 6.4 k/uL (1.3-7.7); Neutrophils % (A) 66 %; Platelet Count 264 k/uL (150-450); RBC 4.38 m/uL (4.30-5.90); RDW 12.8 % (11.5-15.5); WBC 9.7 k/uL (3.8-10.6)
[2017-09-28 06:26] LABS: Albumin 3.8 g/dL (3.5-5.0); Calcium 8.7 mg/dL (8.4-10.2); Potassium 3.6 mmol/L (3.5-5.1); Total Bilirubin 1.2 mg/dL (0.2-1.3); Total Protein 6.7 g/dL (6.3-8.2)
[2017-09-28 07:01] VITALS: RESP 18
[2017-09-28] MEDS ORDERED: SODIUM CHLORIDE 0.9% 500 ML IV ONE (07:19)
--- NOTE | 2017-09-28 07:34 | US ---
EXAMINATION TYPE: US venous doppler duplex LE RT DATE OF EXAM: 09/28/2017 6:57 AM COMPARISON: Right lower extremity venous Doppler ultrasound 09/22/2017 CLINICAL HISTORY: Pain. red swollen lower leg SIDE PERFORMED: Right TECHNIQUE: The lower extremity deep venous system is examined utilizing real time linear array sonog astrid with graded compression, doppler sonography and color-flow sonography. VESSELS IMAGED: External Iliac Vein (EIV) Common Femoral Vein Deep Femoral Vein Greater Saphenous Vein * Femoral Vein Popliteal Vein Proximal Calf Veins (* superficial vessels) FINDINGS: Grayscale, color doppler, spectral doppler imaging performed of the deep veins of the lower extremities. There is normal flow, compressibility, vascular waveforms. IMPRESSION: Negative for DVT, right lower extremity.
[2017-09-28] MEDS ORDERED: CLINDAMYCIN 600 MG in DEXTROSE 5% IN WATER 50 ML IVPB STA ×2 (07:40)
[2017-09-28] MEDS ORDERED: cloNIDine HCL 0.1 MG TAB PO STA (08:20)
[2017-09-28 08:53] VITALS: BP 140/95; PULSE 88; TEMP 98
== END 2017-09-28 08:53 | disposition home or self-care (01) ==
LOC: EC 05:17
DX: L03.115 Cellulitis of right lower limb (principal); I10 Essential (primary) hypertension; I25.2 Old myocardial infarction; F17.200 Nicotine dependence, unspecified, uncomplicated; Z87.438 Personal history of other diseases of male genital organs; Z79.899 Other long term (current) drug therapy; Z88.8 Allergy status to other drugs, medicaments and biological substances
CPT/HCPCS: 36415; 80053; 85025; 85379; 87040; 96361; 96365; 99284

== ENCOUNTER 2018-05-01 18:11 | Emergency (ER) | payer OTHER ==
[2018-05-01 18:18] VITALS: PULSE 80
--- NOTE | 2018-05-01 19:10 | ED ---
Lower Extremity Injury HPI - General Chief Complaint: Extremity Injury, Lower Stated Complaint: lt leg injury Time Seen by Provider: 05/01/18 18:40 Source: patient Mode of arrival: ambulatory Limitations: no limitations - History of Present Illness Initial Comments: 58-year-old male patient presents to the emergency department today for evaluation of left leg pain. Patient states around 3:30 this afternoon he was out splitting wood when he went to flip a log over it struck him in the haynes. States that he has had swelling and pain to the area since. Patient states he is able to ambulate. He does report the pain as a burning intense type pain. States he did not take anything for pain and declines pain medication at this time. Denies any other injuries. Patient denies any headache, neck pain, back pain, chest pain, shortness of breath, dizziness, weakness, abdominal pain, nausea, vomiting, or difficulties with bowel movements or urination. - Related Data Home Medications Medication Instructions Recorded Confirmed Dutasteride [Avodart] 0.5 mg PO HS 10/07/16 05/01/18 cloNIDine HCL [Catapres] 0.1 mg PO HS 10/07/16 05/01/18 Hydrochlorothiazide [Hydrodiuril] 12.5 mg PO DAILY 02/10/17 05/01/18 amLODIPine BESYLATE/BENAZEPRIL 1 cap PO DAILY 02/10/17 05/01/18 [Lotrel 5-10 mg Capsule] Previous Rx's Medication Instructions Recorded Carvedilol [Coreg] 3.125 mg PO BID #60 tablet 11/08/16 Allergies Allergy/AdvReac Type Severity Reaction Status Date / Time metoprolol Allergy Dyspnea Verified 05/01/18 18:50 Review of Systems ROS Statement: Those systems with pertinent positive or pertinent negative responses have been documented in the HPI. ROS Other: All systems not noted in ROS Statement are negative. Past Medical History Past Medical History: Hypertension, Myocardial Infarction ([place]), Prostate Disorder Last Myocardial Infarction Date:: 09/2016 History of Any Multi-Drug Resistant Organisms: None Reported Past Surgical History: Orthopedic Surgery Additional Past Surgical History / Comment(s): right arm Past Anesthesia/Blood Transfusion Reactions: No Reported Reaction Past Psychological History: No Psychological Hx Reported Smoking Status: Current every day smoker Past Alcohol Use History: None Reported Past Drug Use History: None Reported - Past Family History Father Family Medical History: Cancer Additional Family Medical History / Comment(s): prostate General Exam Limitations: no limitations General appearance: alert, in no apparent distress, other (This is a well- developed, well-nourished adult male patient in no acute distress. Vital signs upon presentation are temperature 97.8F, pulse 80, respirations 18, blood pressure 144/98, pulse ox 95% on room air.) Respiratory exam: Present: normal lung sounds bilaterally. Absent: respiratory distress, wheezes, rales, rhonchi, stridor Cardiovascular Exam: Present: regular rate, normal rhythm, normal heart sounds. Absent: systolic murmur, diastolic murmur, rubs, gallop, clicks Extremities exam: Present: full ROM, tenderness (Tenderness over the mid anterior haynes), normal capillary refill, other (Patient has a large hematoma noted over the mid anterior haynes. There is some mid tibial tenderness as well. Patient is full range of motion to the knee and ankle. Is able to ambulate. Remainder of skin is pink, warm, and dry. Cap refills less than 3 seconds. Pedal and posttibial pulses 2+ and equal bilaterally.). Absent: normal inspection, pedal edema, joint swelling, calf tenderness Neurological exam: Present: alert, oriented X3, CN II-XII intact Psychiatric exam: Present: normal affect, normal mood Skin exam: Present: warm, dry, intact, normal color. Absent: rash Course Vital Signs 05/01/18 05/01/18 18:15 19:31 Temperature 97.8 F 97.5 F L Pulse Rate 80 80 Respiratory 18 16 Rate Blood Pressure 144/98 122/100 O2 Sat by Pulse 95 98 Oximetry Medical Decision Making - Medical Decision Making 58-year-old male patient presents to the emergency department today for evaluation of left leg pain after striking his leg with a log earlier in the day. Physical examination did reveal large hematoma to the mid haynes. X-ray was obtained and showed no acute fracture or dislocation. Patient is not taking any anticoagulant or antiplatelet medications. Has a benign medical history other than hypertension. We did place an Adria wrap around the area of hematoma. Instructed to apply ice to the area and take anti-inflammatory medication for pain relief. Follow-up with your primary care physician for recheck in 1-2 days. Return parameters were discussed in detail. He verbalizes understanding and agrees with this plan. - Radiology Data Radiology results: report reviewed, image reviewed Two-view x-ray of the left tib-fib were obtained. Report was reviewed in its entirety. Impression by Dr. Bowens shows no fracture seen. Disposition Clinical Impression: Traumatic hematoma of right lower leg Disposition: HOME SELF-CARE Condition: Good Instructions: Hematoma (ED) Additional Instructions: Apply ice to the painful areas 20 minutes at a time at least 4 times daily. Use Adria wrap for comfort and support. Follow-up with your primary care physician for recheck in 1-2 days. Return immediately for any new, worsening, or concerning symptoms. Is patient prescribed a controlled substance at d/c from ED?: No Referrals: Carmina Hewitt MD [Primary Care Provider] - 1-2 days Time of Disposition: 19:20
--- NOTE | 2018-05-01 19:14 | XR ---
EXAMINATION TYPE: XR tibia fibula LT DATE OF EXAM: 05/01/2018 COMPARISON: NONE HISTORY: Hit in the leg. Pain. TECHNIQUE: 2 views FINDINGS: The tibia and fibula appear intact. I see no fracture. Ankle joint and knee joint appear in tact. IMPRESSION: No fracture seen.
[2018-05-01] MEDS ORDERED: ACET/COD 300 MG/30 MG STARTER PACK 6 TAB BTL PO STA (19:23)
[2018-05-01 19:34] VITALS: BP 122/100; RESP 16; TEMP 97.5
== END 2018-05-01 19:35 | disposition home or self-care (01) ==
LOC: EC 18:11
DX: S80.11XA Contusion of right lower leg, initial encounter (principal); I10 Essential (primary) hypertension; I25.2 Old myocardial infarction; N42.9 Disorder of prostate, unspecified; F17.200 Nicotine dependence, unspecified, uncomplicated; Z79.899 Other long term (current) drug therapy; Z88.8 Allergy status to other drugs, medicaments and biological substances; W22.8XXA Striking against or struck by other objects, initial encounter; Y92.009 Unspecified place in unspecified non-institutional (private) residence as the place of occurrence of the external cause
CPT/HCPCS: 99283

== ENCOUNTER 2018-11-11 00:54 | Observation (INO) | payer OTHER ==
[2018-11-11 01:25] LABS: Basophils % (A) 0 %; Eosinophils # (A) 0.2 k/uL (0-0.7); Eosinophils % (A) 2 %; HCT 45.2 % (39.0-53.0); HGB 14.2 gm/dL (13.0-17.5); Lymphocytes # (A) 1.4 k/uL (1.0-4.8); Lymphocytes % (A) 15 %; MCH 29.6 pg (25.0-35.0); MCHC 31.5 g/dL (31.0-37.0); MCV 94.1 fL (80.0-100.0); Mean Platelet Volume 6.9; Monocytes # (A) 0.6 k/uL (0-1.0); Monocytes % (A) 7 %; Neutrophils # (A) 6.8 k/uL (1.3-7.7); Neutrophils % (A) 73 %; Platelet Count 219 k/uL (150-450); RDW 13.1 % (11.5-15.5); WBC 9.3 k/uL (3.8-10.6)
[2018-11-11 01:35] LABS: ALT 15 U/L (21-72); AST 17 U/L (17-59); African American GFR (CKD) >90 (>60 ml/min/1.73 sqM); Albumin 3.8 g/dL (3.5-5.0); Alkaline Phosphatase 90 U/L (38-126); Anion Gap 10 mmol/L; Blood Urea Nitrogen 23 mg/dL (9-20); Calcium 8.9 mg/dL (8.4-10.2); Carbon Dioxide 24 mmol/L (22-30); Chloride 105 mmol/L (98-107); Glucose 130 mg/dL (74-99); Potassium 3.7 mmol/L (3.5-5.1); Sodium 139 mmol/L (137-145); Total Bilirubin 0.6 mg/dL (0.2-1.3)
[2018-11-11 01:38] LABS: Partial Thromboplastin Time 25.2 sec (22.0-30.0); Prothrombin Time 10.4 sec (9.0-12.0)
--- NOTE | 2018-11-11 01:48 | XR ---
EXAM: XR Chest, 2 Views CLINICAL HISTORY: ITS.REASON XR Reason: Chest Pain TECHNIQUE: Frontal and lateral views of the chest. Comparison: 02/10/17 IMPRESSION: Cardiomegaly. Tortuous aorta. No consolidation or pleural effusion.
[2018-11-11] MEDS ORDERED: NITROGLYCERIN SL TABS 0.4 MG TAB SUBLINGUAL PRN (02:45)
[2018-11-11] MEDS ORDERED: HEPARIN SOD,PORK IN 0.45% NACL 25,000 UNIT in 0.45% NACL 1 250ML.BAG IV SCH (02:45)
[2018-11-11] MEDS ORDERED: HEPARIN SODIUM,PORCINE 5,000 UNIT/ML 1 ML VIAL IV ONE (02:45)
[2018-11-11] MEDS ORDERED: HEPARIN SODIUM,PORCINE 5,000 UNIT/ML 1 ML VIAL IV PRN (02:45)
--- NOTE | 2018-11-11 02:45 | ED ---
Chest Pain HPI - General Chief Complaint: Chest Pain Stated Complaint: Chest pain Time Seen by Provider: 11/11/18 02:03 Source: patient, RN notes reviewed, old records reviewed Mode of arrival: ambulatory Limitations: no limitations - History of Present Illness Initial Comments: This is a 58-year-old male the ER for evaluation. This patient resents today for evaluation regards to chest pain. Patient is history of cardiac risk factors history of heart disease. No recent travel history sick contacts no fever cough or congestion patient was doing a lot of work from ER today than the end of heaviness on his chest chest pain and feeling of fullness with mild sweating. No recent cardiac evaluation. N MD Complaint: chest pain -: hour(s) Onset: during rest Pain Location: substernal Severity: mild Severity scale (1-10): 2 Quality: tightness, other (Fullness) Consistency: intermittent Improves With: nothing Worsens With: nothing Anginal Symptoms: diaphoresis Other Symptoms: other (none) Treatments Prior to Arrival: none - Related Data Home Medications Medication Instructions Recorded Confirmed Dutasteride [Avodart] 0.5 mg PO HS 10/07/16 05/01/18 cloNIDine HCL [Catapres] 0.1 mg PO HS 10/07/16 05/01/18 Hydrochlorothiazide [Hydrodiuril] 12.5 mg PO DAILY 02/10/17 05/01/18 amLODIPine BESYLATE/BENAZEPRIL 1 cap PO DAILY 02/10/17 05/01/18 [Lotrel 5-10 mg Capsule] Previous Rx's Medication Instructions Recorded Carvedilol [Coreg] 3.125 mg PO BID #60 tablet 11/08/16 Allergies Allergy/AdvReac Type Severity Reaction Status Date / Time metoprolol Allergy Dyspnea Verified 11/11/18 01:01 Review of Systems ROS Statement: Those systems with pertinent positive or pertinent negative responses have been documented in the HPI. ROS Other: All systems not noted in ROS Statement are negative. Past Medical History Past Medical History: Hypertension, Myocardial Infarction ([place]), Prostate Disorder Last Myocardial Infarction Date:: 09/2016 History of Any Multi-Drug Resistant Organisms: None Reported Past Surgical History: Orthopedic Surgery Additional Past Surgical History / Comment(s): right arm Past Anesthesia/Blood Transfusion Reactions: No Reported Reaction Past Psychological History: No Psychological Hx Reported Smoking Status: Current every day smoker Past Alcohol Use History: None Reported Past Drug Use History: None Reported - Past Family History Father Family Medical History: Cancer Additional Family Medical History / Comment(s): prostate General Exam Limitations: no limitations General appearance: alert, in no apparent distress, anxious Head exam: Present: atraumatic, normocephalic, normal inspection Eye exam: Present: normal appearance, PERRL, EOMI. Absent: scleral icterus, conjunctival injection, periorbital swelling ENT exam: Present: normal exam, mucous membranes moist Neck exam: Present: normal inspection. Absent: tenderness, meningismus, lymphadenopathy Respiratory exam: Present: normal lung sounds bilaterally. Absent: respiratory distress, wheezes, rales, rhonchi, stridor Cardiovascular Exam: Present: normal rhythm, tachycardia, normal heart sounds. Absent: systolic murmur, diastolic murmur, rubs, gallop, clicks GI/Abdominal exam: Present: soft, normal bowel sounds. Absent: distended, tenderness, guarding, rebound, rigid Extremities exam: Present: normal inspection, full ROM, normal capillary refill. Absent: tenderness, pedal edema, joint swelling, calf tenderness Back exam: Present: normal inspection Neurological exam: Present: alert, oriented X3, CN II-XII intact Psychiatric exam: Present: normal affect, normal mood Skin exam: Present: warm, dry, intact, normal color. Absent: rash Course Vital Signs 11/11/18 11/11/18 11/11/18 00:59 02:01 02:02 Temperature 98.5 F Pulse Rate 104 H 86 Pulse Rate [ 87 Pulse Oximetery ] Respiratory 20 18 Rate Blood Pressure 168/95 155/118 O2 Sat by Pulse 97 97 Oximetry - Reevaluation(s) Reevaluation #1: 11/11/18 02:43 Medical records reviewed Reevaluation #2: 11/11/18 02:43 Patient is still with chest pain Chest Pain MDM - MDM 58 male to the ER for evaluation of chest pain. Patient has history of heart disease. Will admit for cardiac observation, nonspecific but elevated troponin Critical Care Time Critical Care Time: Yes Total Critical Care Time: 31 Disposition Clinical Impression: Chest pain Disposition: ADMITTED IP TO THIS [facility] Instructions (If sedation given, give patient instructions): Chest Pain (ED) Is patient prescribed a controlled substance at d/c from ED?: No Referrals: Carmina Hewitt MD [Primary Care Provider] - 1-2 days
[2018-11-11] MEDS ORDERED: hydrALAZINE HCL 20 MG/ML 1 ML VIAL IVP STA (05:00)
--- NOTE | 2018-11-11 06:53 | P.HPIM ---
History of Present Illness H&P Date: 11/11/18 Chief Complaint: Chest pain The patient is a 58-year-old male with a prior history of OH, hypertension and BPH who presents to the ER via private vehicle with chief complaint of chest pain. Apparently the patient woke up having chest discomfort described as pressure yesterday morning. The patient mentions constant 7 out of 10 substernal chest pressure with radiation to his left shoulder with associated shortness of breath, worse with inspiration and deep breaths. Patient reports some dyspnea on exertion but denies any diaphoresis or nausea or vomiting. The patient has a long history of smoking, he also reports having a stress test 2 years ago and a heart cath within the last 2 years. The patient reports noncompliance with his aunt hypertensive regimen in particular his beta vinod over the last 2 months due to increasing shortness of breath Review of records indicates a prior stress test 10/23/16 that revealed a prior mid to basal inferior wall infarct and a possible small area of reversibility in the cardiac apex In the ER the patient had a conference of workup he was given aspirin and nitroglycerin his chest pain was still persisting. The patient's blood pressure is noted to be elevated as high as168/121 And chest x-ray showed cardiomegaly with tortuous aorta, EKG showed sinus tachycardia with PVCs, troponin was negative at 0.019. Review of Systems Pertinent positives per HPI all other systems are negative Past Medical History Past Medical History: Hypertension, Myocardial Infarction ([place]), Prostate Disorder Last Myocardial Infarction Date:: 09/2016 History of Any Multi-Drug Resistant Organisms: None Reported Past Surgical History: Orthopedic Surgery Additional Past Surgical History / Comment(s): right arm Past Anesthesia/Blood Transfusion Reactions: No Reported Reaction Past Psychological History: No Psychological Hx Reported Smoking Status: Current every day smoker Past Alcohol Use History: None Reported Past Drug Use History: None Reported - Past Family History Father Family Medical History: Cancer Additional Family Medical History / Comment(s): prostate Medications and Allergies Home Medications Medication Instructions Recorded Confirmed Type Dutasteride [Avodart] 0.5 mg PO HS 10/07/16 05/01/18 History cloNIDine HCL [Catapres] 0.1 mg PO HS 10/07/16 05/01/18 History Carvedilol [Coreg] 3.125 mg PO BID #60 tablet 11/08/16 05/01/18 Rx Hydrochlorothiazide [Hydrodiuril] 12.5 mg PO DAILY 02/10/17 05/01/18 History amLODIPine BESYLATE/BENAZEPRIL 1 cap PO DAILY 02/10/17 05/01/18 History [Lotrel 5-10 mg Capsule] Allergies Allergy/AdvReac Type Severity Reaction Status Date / Time No Known Allergies Allergy Verified 11/11/18 06:25 Physical Exam Vitals: Vital Signs Temp Pulse Pulse Resp BP Pulse Ox 11/11/18 06:11 98 F 87 18 132/104 97 11/11/18 05:53 150/101 11/11/18 05:31 84 18 150/111 97 11/11/18 05:13 82 18 168/121 97 11/11/18 03:09 85 18 150/114 96 11/11/18 02:02 87 11/11/18 02:01 86 18 155/118 97 11/11/18 00:59 98.5 F 104 H 20 168/95 97 Intake and Output 11/10/18 11/10/18 11/11/18 14:59 22:59 06:59 Other: Weight 90.718 kg Constitutional: No acute distress, conversant, pleasant Eyes: Anicteric sclerae, moist conjunctiva, no lid-lag, PERRLA ENMT: NC/AT,Oropharynx clear, no erythema, exudates Neck:Supple, FROM, no masses, or JVD, No carotid bruits; No thyromegaly Lungs: Clear to auscultation, Clear to percussion, Normal respiratory effort, no accessory muscle use Cardiovascular: Heart regular in rate and rhythm, No murmurs, gallops, or rubs no peripheral edema Abdominal: Soft Nontender, nom distended, no guarding, no rebound or rigidity, Normoactive bowel sounds No hepatomegaly, No splenomegaly, No palpable mass No abdominal wall hernia noted Skin: Normal temperature, tone, texture, turgor, No induration No subcutaneous nodules, No rash, lesions, No ulcers Extremities:No digital cyanosis No clubbing, Pedal pulses intact and symmetrical Radial pulses intact and symmetrical Normal gait and station, No calf tenderness Psychiatric: Alert and oriented to person, place and time, Appropriate affect Intact judgement Neuro: Muscles Strength 5/5 in all 4 extremities, Sensation to light touch grossly present throughout, Cranial nerves II-XII grossly intact. No focal sensory deficits Results CBC & Chem 7: 11/11/18 01:16 11/11/18 01:16 Labs: Abnormal Lab Results - Last 24 Hours (Table) 11/11/18 Range/Units 01:16 BUN 23 H (9-20) mg/dL Glucose 130 H (74-99) mg/dL ALT 15 L (21-72) U/L Assessment and Plan (1) Chest pain Current Visit: Yes Status: Acute Code(s): R07.9 - CHEST PAIN, UNSPECIFIED SNOMED Code(s): 34889790 (2) Hypertensive urgency Current Visit: Yes Status: Acute Code(s): I16.0 - HYPERTENSIVE URGENCY SNOMED Code(s): 664743681 (3) BPH (benign prostatic hyperplasia) Current Visit: Yes Status: Acute Code(s): N40.0 - BENIGN PROSTATIC HYPERPLASIA WITHOUT LOWER URINRY TRACT SYMP SNOMED Code(s): 980263753 (4) History of OH (myocardial infarction) Current Visit: Yes Status: Acute Code(s): I25.2 - OLD MYOCARDIAL INFARCTION SNOMED Code(s): 968647318 Plan: The patient is placed in observation anticipate a less than 2 midnight stay with atypical chest pain in the setting of prior OH and presentation with hypertensive urgency, initial troponin was negative will continue to trend sequentially, EKG indicated sinus tachycardia with PVCs with no sedation of acute ischemia. The patient is continued on heparin drip per protocol continued on routine chest pain orders with aspirin and nitroglycerin. We'll check a d- dimer and echocardiogram and await further recommendations from cardiology, patient previously had an abnormal stress test in 2017 and may be a good candidate for heart catheterization on this presentation. Patient's blood pressure is elevated his home regimen is been resumed and patient will be given hydralazine with constant monitoring on telemetry floor. We'll continue to follow the patient's clinical course CODE STATUS: Full code Discussed plan of care with: Patient and ER physician Anticipated discharge: 1-[address]: Home Prophylaxis: On heparin drip Time with Patient: Greater than 30
--- NOTE | 2018-11-11 08:49 | CT ---
EXAMINATION TYPE: CT angio chest DATE OF EXAM: 11/11/2018 COMPARISON: Prior CT chest 10/07/2016 HISTORY: Dyspnea, Chest pain, and Increased D-dimer CT DLP: 389.3 mGycm Automated exposure control for dose reduction was used. CONTRAST: CTA scan of the thorax is performed without and with IV Contrast, patient injected with 100 ml mL of Isovue 370, pulmonary embolism protocol. MIP images are created and reviewed. 3D reconstructed imag es are created on an independent workstation and reviewed. FINDINGS: Subcutaneous left chest mass in the subcutaneous tissues of the left breast is again noted showing similar appearance. LUNGS: There are dependent atelectatic changes present. AORTA: No additional significant abnormality is seen. MEDIASTINUM: There is satisfactory enhancement of the pulmonary artery and its branches, there is no CT evidence for pulmonary embolism. There are no greater than 1 cm hilar or mediastinal lymph nodes. No pericardial effusion is seen. There are some coronary artery calcifications. OTHER: No additional significant abnormality is seen. IMPRESSION: NO EVIDENT PULMONARY EMBOLISM. STABLE SUBCUTANEOUS LEFT BREAST MASS
[2018-11-11 09:12] LABS: Mean Platelet Volume 6.8; Platelet Count 211 k/uL (150-450)
[2018-11-11] MEDS: amLODIPine 5 MG TAB PO SCH (09:56)
[2018-11-11] MEDS: ATORVASTATIN 80 MG TAB PO SCH (09:57)
[2018-11-11] MEDS: METOPROLOL TARTRATE 25 MG TAB PO SCH ×2 (09:57→20:12)
[2018-11-11] MEDS: LISINOPRIL 10 MG TAB PO SCH (09:57)
--- NOTE | 2018-11-11 10:17 | P.CRDCN ---
History of Present Illness History of present illness: This is a pleasant 58-year-old male past medical history significant for bicuspid aortic valve, nonischemic cardiomyopathy, hypertension and chronic nicotine dependence. He has not had a myocardial infarction. Cardiac catheterization report from 2017 has been reviewed. At that time the left main was normal length and patent, LAD with mild disease in the distal portion, circumflex artery with free of significant occlusive disease in the RCA has no significant obstructive disease. 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 He has followed in the past with Dr. Rodriguez, however has not been back to the office since 2017. We have been asked to see him in consultation for chest pain. He describes a dull pain in the epigastric region that is exacerbated by taking a deep breath. He states he first noticed this pain when he woke up in the morning and it persisted all day while he was outside doing tractor work in the yard. There was not radiation to the arm, back, chest, neck or jaw. He denies sh ortness of breath, dizziness, palpitations, nausea or vomiting. He is seen and examined resting comfortably in no acute distress. Blood pressure on arrival was 168/95 and 155/118. He was given a one-time dose of hydralazine 10 mg IV. EKG reveals sinus mechanism with nonspecific abnormalities in the lateral leads. Chest x-ray is negative for an acute cardiopulmonary process with evidence of a tortuous aorta. CTA chest is negative for pulmonary embolism with stable subcutaneous left breast mass. No additional significant abnormality seen in the aorta. Laboratory data reviewed, WBC 9.3, hemoglobin 14.2, platelets 211, d-dimer 2.55, sodium 139, potassium 3.7, creatinine 0.99, magnesium 2.0, cardiac enzymes negative 2. Current cardiac medications include Catapres 0.1 mg at bedtime, amlodi pine/benazepril 5/10 mg daily, hydrochlorothiazide 12.5 mg daily and carvedilol 3.125 mg twice a day. At the time of my exam: CONSTITUTIONAL: Denies fever. Denies chills. EYES: Denies blurred vision. Denies vision changes. Denies eye pain. EARS, NOSE, MOUTH & THROAT: Denies headache. Denies sore throat. Denies ear pain. CARDIOVASCULAR: Denies chest pain. Denies shortness of breath. Denies orthopnea. Denies PND. Denies palpitations. RESPIRATORY: Denies cough. GASTROINTESTINAL: Complains of epigastric tenderness. Denies diarrhea. Denies constipation. Denies nausea. Denies vomiting. MUSCULOSKELETAL: Denies myalgias. INTEGUMENTARY: Denies pruitis. Denies rash. NEUROLOGIC: Denies numbness. Denies tingling. Denies weakness. PSYCHIATRIC: Denies anxiety. Denies depression. ENDOCRINE: Denies fatigue. Denies weight change. Denies polydipsia. Denies polyurina. GENITOURINARY: Denies burning, hematuria or urgency with micturation. HEMATOLOGIC: Denies history of anemia. Denies bleeding. Blood pressure 132/95 heart rate 89 afebrile maintaining oxygen saturation on room air GENERAL: This is a 58-year-old male in no apparent distress at the time of my examination. HEENT: Head is atraumatic, normocephalic. Pupils are equal, round. Sclerae anicteric. Conjunctivae are clear. Mucous membranes of the mouth are moist. Neck is supple. There is no jugular venous distention. No carotid bruit is heard. LUNGS: Clear to auscultation no wheezes, rales or rhonchi. No chest wall tenderness is noted on palpation or with deep breathing. Soft mass noted on the left breast near the nipple. HEART: Regular rate and rhythm without murmurs, rubs or gallops. S1 and S2 heard. ABDOMEN: Soft, nontender. Bowel sounds are heard. No organomegaly noted. EXTREMITIES: No evidence of peripheral edema and no calf tenderness noted. VASCULAR: Radial and dorsalis pedis pulses palpated, no evidence of clubbing. NEUROLOGIC: Patient is awake, alert and oriented x3. ASSESSMENT Epigastric pain, atypical for angina. Hypertension, uncontrolled Non-ischemic cardiomyopathy Bicuspid aortic valve Chronic nicotine dependence PLAN Continue to obtain serial cardiac enzymes to rule out an acute coronary event. Although documented as such, the patient has never had a myocardial infarction and has no coronary artery obstructive disease. Repeat 2D echocardiogram and doppler study to assess cardiac structure and function. Pending echo and labs further recommendations will be made, although symptoms are atypical for angina and recent cath showing no obstructive disease. Smoking cessation highly recommended. Thank you kindly for this consultation. Nurse Practitioner note has been reviewed, I agree with a documented findings and plan of care. Patient was seen and examined. Past Medical History Past Medical History: Hypertension, Myocardial Infarction ([place]), Prostate Disorder Last Myocardial Infarction Date:: 09/2016 History of Any Multi-Drug Resistant Organisms: None Reported Past Surgical History: Orthopedic Surgery Additional Past Surgical History / Comment(s): right arm Past Anesthesia/Blood Transfusion Reactions: No Reported Reaction Past Psychological History: No Psychological Hx Reported Smoking Status: Current every day smoker Past Alcohol Use History: None Reported Past Drug Use History: None Reported - Past Family History Father Family Medical History: Cancer Additional Family Medical History / Comment(s): prostate Medications and Allergies Home Medications Medication Instructions Recorded Confirmed Type Dutasteride [Avodart] 0.5 mg PO HS 10/07/16 11/11/18 History cloNIDine HCL [Catapres] 0.1 mg PO HS 10/07/16 11/11/18 History Carvedilol [Coreg] 3.125 mg PO BID #60 tablet 11/08/16 11/11/18 Rx Hydrochlorothiazide [Hydrodiuril] 12.5 mg PO DAILY 02/10/17 11/11/18 History amLODIPine BESYLATE/BENAZEPRIL 1 cap PO DAILY 02/10/17 11/11/18 History [Lotrel 5-10 mg Capsule] Allergies Allergy/AdvReac Type Severity Reaction Status Date / Time No Known Allergies Allergy Verified 11/11/18 08:25 Physical Exam Vitals: Vital Signs Temp Pulse Pulse Resp BP Pulse Ox 11/11/18 06:11 98 F 87 18 132/104 97 11/11/18 05:53 150/101 11/11/18 05:31 84 18 150/111 97 11/11/18 05:13 82 18 168/121 97 11/11/18 03:09 85 18 150/114 96 11/11/18 02:02 87 11/11/18 02:01 86 18 155/118 97 11/11/18 00:59 98.5 F 104 H 20 168/95 97 Intake and Output 11/10/18 11/11/18 11/11/18 22:59 06:59 14:59 Other: Weight 90.718 kg Results 11/11/18 08:42 11/11/18 01:16 Cardiac Enzymes 11/11/18 11/11/18 Range/Units 01:16 01:16 AST 17 (17-59) U/L Troponin I 0.019 (0.000-0.034) ng/mL Coagulation 11/11/18 Range/Units 01:16 PT 10.4 (9.0-12.0) sec APTT 25.2 (22.0-30.0) sec CBC 11/11/18 Range/Units 01:16 WBC 9.3 (3.8-10.6) k/uL RBC 4.80 (4.30-5.90) m/uL Hgb 14.2 (13.0-17.5) gm/dL Hct 45.2 (39.0-53.0) % Plt Count 219 (150-450) k/uL Comprehensive Metabolic Panel 11/11/18 Range/Units 01:16 Sodium 139 (137-145) mmol/L Potassium 3.7 (3.5-5.1) mmol/L Chloride 105 (98-107) mmol/L Carbon Dioxide 24 (22-30) mmol/L BUN 23 H (9-20) mg/dL Creatinine 0.99 (0.66-1.25) mg/dL Glucose 130 H (74-99) mg/dL Calcium 8.9 (8.4-10.2) mg/dL AST 17 (17-59) U/L ALT 15 L (21-72) U/L Alkaline Phosphatase 90 (38-126) U/L Total Protein 7.0 (6.3-8.2) g/dL Albumin 3.8 (3.5-5.0) g/dL Current Medications Generic Name Dose Route Start Last Admin Trade Name Freq PRN Reason Stop Dose Admin Amlodipine Besylate 5 mg 11/11/18 09:00 Norvasc PO DAILY [facility] Aspirin 325 mg 11/12/18 09:00 Aspirin PO DAILY [facility] Atorvastatin Calcium 80 mg 11/11/18 09:00 Lipitor PO DAILY [facility] Heparin Sodium (Porcine) 0 unit 11/11/18 02:45 Heparin IV Q6HR PRN Low PTT Protocol Hydrochlorothiazide 25 mg 11/11/18 09:00 Hydrodiuril PO DAILY [facility] Heparin Sodium/Sodium Chloride 250 mls @ 9.979 mls/hr 11/11/18 02:45 11/11/18 03:02 25,000 unit/ Sodium Chloride IV 11 units/kg/hr .Q24H [facility] 9.979 mls/hr Administration Protocol 11 UNITS/KG/HR Lisinopril 10 mg 11/11/18 09:00 Zestril PO DAILY [facility] Metoprolol Tartrate 25 mg 11/11/18 09:00 Lopressor PO BID [facility] Nitroglycerin 0.4 mg 11/11/18 02:45 11/11/18 06:16 Nitrostat SUBLINGUAL 0.4 mg Q5M PRN Administration Chest Pain Intake and Output 11/10/18 11/11/18 11/11/18 22:59 06:59 14:59 Other: Weight 90.718 kg 11/11/18 01:16 11/11/18 01:16
[2018-11-11 11:34] LABS: Cholesterol 135 mg/dL (<200); HDL Cholesterol 53 mg/dL (40-60); LDL Cholesterol,Calculated 68 mg/dL (0-99); Triglycerides 69 mg/dL (<150)
[2018-11-11] MEDS ORDERED: HYDROCHLOROTHIAZIDE 25 MG TAB PO SCH (13:30)
[2018-11-11] MEDS: HYDROCHLOROTHIAZIDE 25 MG TAB PO SCH (13:42)
[2018-11-11] MEDS ORDERED: AMINOPHYLLINE 500 MG/20 ML VIAL IV PRN (14:58)
[2018-11-11] MEDS ORDERED: CAFFEINE CITRATE 60 MG/3 ML VIAL IV PRN (14:58)
[2018-11-11] MEDS ORDERED: DIPYRIDAMOLE 51.7 MG in SODIUM CHLORIDE 0.9% 50 ML IV ONE (14:58)
--- NOTE | 2018-11-11 18:00 | ECHOF ---
Referral Reason:Chest pain MEASUREMENTS -------- HEIGHT: 175.3 cm WEIGHT: 90.7 kg BP: 132/104 RVIDd: 3.1 cm (< 3.3) IVSd: 1.6 cm (0.6 - 1.1) LVIDd: 4.8 cm (3.9 - 5.3) LVPWd: 1.4 cm (0.6 - 1.1) IVSs: 2.1 cm LVIDs: 3.8 cm LVPWs: 2.1 cm LA Diam: 3.6 cm (2.7 - 3.8) LAESV Index (A-L): 24.65 ml/m Ao Diam: 4.3 cm (2.0 - 3.7) AV Cusp: 2.0 cm (1.5 - 2.6) MV EXCURSION: 22.213 mm (> 18.000) MV EF SLOPE: 124 mm/s (70 - 150) EPSS: 0.8 cm MV E Ron: 0.84 m/s MV DecT: 251 ms MV A Ron: 0.92 m/s MV E/A Ratio: 0.91 AV maxP.52 mmHg AV meanP.47 mmHg FINDINGS -------- Sinus rhythm. This was a technically adequate study. The left ventricular size is normal. There is moderate concentric left ventricular hypertrophy. O verall left ventricular systolic function is normal with, an EF between 60 - 65 %. The right ventricle is normal in size. Normal LA size by volume 22+/-6 ml/m2. The right atrium is normal in size. Interatrial and interventricular septum intact. The aortic valve is bicuspid. There is mild aortic valve sclerosis. Trace amount of aortic regurg itation. There is mild aortic stenosis present. Peak/mean gradient across the Aortic Valve is 14 .52mmHg / 8.47mmHg. Mild mitral annular calcification present. The tricuspid valve appears structurally normal. There is no pulmonic regurgitation present. The aortic root is dilated measuring 4.3cm. Normal inferior vena cava with normal inspiratory collapse consistent with estimated right atrial pre ssure of 5 mmHg. There is no pericardial effusion. CONCLUSIONS -------- 1. Sinus rhythm. 2. This was a technically adequate study. 3. The left ventricular size is normal. 4. There is moderate concentric left ventricular hypertrophy. 5. Overall left ventricular systolic function is normal with, an EF between 60 - 65 %. 6. The right ventricle is normal in size. 7. Normal LA size by volume 22+/-6 ml/m2. 8. The right atrium is normal in size. 9. Interatrial and interventricular septum intact. 10. The aortic valve is bicuspid. 11. There is mild aortic valve sclerosis. 12. Trace amount of aortic regurgitation. 13. There is mild aortic stenosis present. 14. Peak/mean gradient across the Aortic Valve is 14.52mmHg / 8.47mmHg. 15. Mild mitral annular calcification present. 16. The tricuspid valve appears structurally normal. 17. There is no pulmonic regurgitation present. 18. The aortic root is dilated measuring 4.3cm. 19. Normal inferior vena cava with normal inspiratory collapse consistent with estimated right atrial pressure of 5 mmHg. 20. There is no pericardial effusion. MEDICAL TECH: Yashira Smith RDCS
--- NOTE | 2018-11-12 08:17 | PN ---
PROGRESS NOTE Mr. Land is a gentleman with a bicuspid aortic valve we admitted yesterday. He is comfortable, resting. His troponins are normal. Vitals are stable. Echo revealed good systolic function with a bicuspid aortic valve without significant regurgitation or gradient. Vital signs are stable. S1, S2 heard normally. Short systolic murmur noted. Lungs are clear. Abdomen and lower extremity exam unchanged. Plan is to perform a stress test on this patient today and if the stress test is normal, he can be discharged. MMODL / IJN: [id number] /
[2018-11-12] MEDS ORDERED: ASPIRIN 81 MG PO SCH (09:00)
[2018-11-12] MEDS ORDERED: ASPIRIN 325 MG TAB PO SCH (09:00)
[2018-11-12] MEDS: LISINOPRIL 10 MG TAB PO SCH (11:54)
[2018-11-12] MEDS: amLODIPine 5 MG TAB PO SCH (11:54)
[2018-11-12] MEDS: METOPROLOL TARTRATE 25 MG TAB PO SCH ×2 (11:54→12:03)
[2018-11-12] MEDS: ATORVASTATIN 80 MG TAB PO SCH (11:54)
--- NOTE | 2018-11-12 12:11 | NM ---
EXAMINATION TYPE: NM stress persantine cardiolite DATE OF EXAM: 11/12/2018 COMPARISON: 10/23/2016 HISTORY: 58-year-old male with chest pain TECHNIQUE: After the intravenous administration of 10.11 mCi Tc 99m Sestamibi - Cardiolite resting S PECT images acquired 45 minutes post injection. The patient received 51.7 mg Persantine, 25.4 mCi Tc 99m Sestamibi - Stress images obtained 30 minute s post injection FINDINGS: Review of stress and rest SPECT images demonstrates small area of decreased perfusion at the cardiac apex more pronounced on rest imaging suggesting attenuation artifact or apical thinning. Mild decreas ed perfusion along the mid to basal inferior wall is not as pronounced as on 2017 suggesting diaphrag matic attenuation. Gated analysis shows normal wall motion with an estimated left ventricular ejectio n fraction of 48 %. TID is calculated at 0.94, IMPRESSION: 1. Mildly decreased LVEF of 48% 2. Some attenuation artifact versus apical thinning at the cardiac apex. 3. Additional diaphragmatic attenuation along the inferior wall. 4. No definite suspicious reversibility is seen.
[2018-11-12] MEDS: HYDROCHLOROTHIAZIDE 25 MG TAB PO SCH (12:41)
--- NOTE | 2018-11-12 14:39 | EST ---
EXERCISE STRESS AGE: 58 SEX: M HT: 5'9" WT: 200 PROTOCOL: Persantine Cardiolite Stress Test. HEART RATE REST: 77 BLOOD PRESSURE REST: 132/84 MAXIMUM HEART RATE ACHIEVED: 83 MAXIMUM BLOOD PRESSURE: 106/82 85% MPHR: 139 100% MPHR: 164 INDICATIONS: Chest pain. CLINICAL INFORMATION: Baseline EKG revealed normal sinus rhythm with leftward axis. Nonspecific ST and T- wave changes. With the percent administration, patient did not have significant symptoms. Heart rate changed from 77-83 beats per minute blood pressure changed from 132/84 to 106/82. EKG remained inconclusive. By EKG rate is an inconclusive Persantine stress test. The nuclear scan results which are more pertinent will be reported by the radiologist. MMODL / IJN: [id number] /
[2018-11-12 15:50] VITALS: BP 129/90; PULSE 91; RESP 16; TEMP 98.3
--- NOTE | 2018-11-12 16:20 | P.DS ---
Providers Date of admission: 11/11/18 02:45 Expected date of discharge: 11/12/18 Attending physician: Laquita Bolivar MD Consults: 11/11/18 02:45 Consult Physician Urgent Consulting Provider: Ernesto Will Consult Reason/Comments: cp Do you want consulting provider notified?: Yes Primary care physician: [facility] Course: The patient is a 58-year-old male with a PMH of bicuspid aortic valve, hypertension, nonischemic cardiomyopathy, and nicotine dependence who presented to the ED with complaints of epigastric chest pain. The pain had started earlier the day of presentation and had persisted during the day, and would get worse with taking deep breaths. He however he denied any shortness of breath, nausea, vomiting, diaphoresis, or palpitations. Furthermore the pain was nonradiating and was not related to exertion. The patient had undergone an extensive evaluation in the ED with troponin level 0.019, and subsequent troponin level 0.0-3 and 0.013. His d-dimer was elevated at 2.55 and he underwent a subsequent chest CT angiogram which was negative for PE. The patient was admitted for further management for his chest pain. Cardiology evaluated the patient and recommended a stress test which was unremarkable. The patient was subsequently cleared for discharge to home with follow-up with his PCP. Patient was seen and examined at the bedside on the day of discharge. He reported no additional complaints and stated that his chest pain had resolved. He denied shortness of breath, nausea, vomiting, diaphoresis, palpitations, fever, chills, cough, abdominal pain, or diarrhea. The patient was advised that if his chest pain recurs or worsens that he should return to the ED. Physical Examination General: Non-toxic, in no acute distress, appears stated age, normal weight HEENT: NC/AT, anicteric sclerae, moist conjunctiva, no lid-lag, PERRLA Cardiovascular: S1/S2 wnl, no murmurs, rubs, or gallops Lungs: Clear to auscultation, normal respiratory effort, no accessory muscle use Abdominal: Soft, non-tender, non-distended, no guarding, rebound, or rigidity Skin: Warm, dry Extremities: No edema or contractures Psychiatric: Alert and oriented to person, place and time, appropriate affect Neuro: CN II-XII grossly intact, Strength 5/5 in all 4 extremities, Speech intact, Sensation to light touch grossly intact throughout Discharge diagnosis: Atypical chest pain, hypertension, nonischemic cardio myopathy, bicuspid aortic valve, nicotine dependence A total of 45 minutes of time were spent preparing this complex discharge summary. Patient Condition at Discharge: Stable Plan - Discharge Summary Discharge Rx Participant: No New Discharge Prescriptions: Continue Dutasteride [Avodart] 0.5 mg PO HS cloNIDine HCL [Catapres] 0.1 mg PO HS Carvedilol [Coreg] 3.125 mg PO BID #60 tablet amLODIPine BESYLATE/BENAZEPRIL [Lotrel 5-10 MG] 1 cap PO DAILY Hydrochlorothiazide [Hydrodiuril] 12.5 mg PO DAILY Discharge Medication List Dutasteride [Avodart] 0.5 mg PO HS 10/07/16 [History] cloNIDine HCL [Catapres] 0.1 mg PO HS 10/07/16 [History] Carvedilol [Coreg] 3.125 mg PO BID #60 tablet 11/08/16 [Rx] Hydrochlorothiazide [Hydrodiuril] 12.5 mg PO DAILY 02/10/17 [History] amLODIPine BESYLATE/BENAZEPRIL [Lotrel 5-10 MG] 1 cap PO DAILY 02/10/17 [History] Follow up Appointment(s)/Referral(s): Carmina Hewitt MD [Primary Care Provider] - 1-2 days Rei Rodriguez MD [STAFF PHYSICIAN] - 11/27/18 2:30 pm (follow up with Dr. Rodriguez) Patient Instructions/Handouts: Chest Pain (ED) Discharge Disposition: HOME SELF-CARE
== END 2018-11-12 17:02 | disposition home or self-care (01) ==
LOC: EC 00:54 → 1SOBS 02:45 → 2ORMAIN 09:22 → 2CATHESU 09:25 → 1SOBS 13:29
PROVIDERS: ADMIT Internal Medicine; ATTEND Internal Medicine
DX: R07.89 Other chest pain (principal); I16.0 Hypertensive urgency; Q23.1 Congenital insufficiency of aortic valve; I11.9 Hypertensive heart disease without heart failure; I42.9 Cardiomyopathy, unspecified; N40.0 Benign prostatic hyperplasia without lower urinary tract symptoms; I49.3 Ventricular premature depolarization; N63.20 Unspecified lump in the left breast, unspecified quadrant; R79.89 Other specified abnormal findings of blood chemistry; R00.0 Tachycardia, unspecified; R10.13 Epigastric pain; F17.200 Nicotine dependence, unspecified, uncomplicated; Z91.19 Patient's noncompliance with other medical treatment and regimen; Z79.899 Other long term (current) drug therapy; Z88.8 Allergy status to other drugs, medicaments and biological substances; I25.2 Old myocardial infarction; Z80.42 Family history of malignant neoplasm of prostate
CPT/HCPCS: 96376; 96365; 96366; 96375; 99291; 36415; 93005; 93017; 93306; 85379; 80061; 80053; 83735; 84484; 85025; 85049; 85610; 85730; 71046; 71275; 78452; G0378 ×2; A9500; J0360; J1644 ×2; J1245; Q9967

== ENCOUNTER 2022-11-29 00:43 | Emergency (ER) | payer OTHER ==
[2022-11-29 00:48] VITALS: BP 124/85; PULSE 87; TEMP 98.1
[2022-11-29] MEDS ORDERED: DIPH,PERTUS(ACELL)TETVAC-LF 0.5 ML VIAL IM ONE (01:03)
[2022-11-29] MEDS ORDERED: CEPHALEXIN 500 MG CAP PO STA (01:03)
--- NOTE | 2022-11-29 01:07 | ED ---
Skin/Abscess/FB HPI - General Chief complaint: Skin/Abscess/Foreign Body Stated complaint: Rash on left leg Time Seen by Provider: 11/29/22 00:52 Source: patient, family, RN notes reviewed, old records reviewed Mode of arrival: ambulatory Limitations: no limitations - History of Present Illness Initial comments: 62-year-old male presents ambulatory with family complaining of abrasion to his left calf 4 days ago on a trailer outside. Patient states that it did not rip his pants. No penetrating injury. Over the past 2 days has had increased pain and swelling of the calf with surrounding redness. Difficulty ambulating due to the pain. States his tetanus shot is not up-to-date. History of hypertension and HI. MD complaint: discoloration, other (abrasion) -: days(s) (4) Tetanus Up to Date: no Location: LLE Severity scale (1-10): 4 Quality: aching, constant Consistency: constant Worsens with: movement, other (weight bearing) Context: other (abrasion from trailer four days ago) Associated symptoms: denies other symptoms - Related Data Home Medications Medication Instructions Recorded Confirmed Dutasteride [Avodart] 0.5 mg PO HS 10/07/16 11/11/18 cloNIDine HCL [Catapres] 0.1 mg PO HS 10/07/16 11/11/18 Previous Rx's Medication Instructions Recorded amLODIPine BESYLATE/BENAZEPRIL 1 cap PO DAILY #30 capsule 11/12/18 [Lotrel 5-10 MG] carvediloL [Coreg] 3.125 mg PO BID #60 tablet 11/12/18 hydroCHLOROthiazide [Hydrodiuril] 12.5 mg PO DAILY #30 cap 11/12/18 Cephalexin [Keflex] 500 mg PO Q6HR 7 Days #28 cap 11/29/22 Allergies Allergy/AdvReac Type Severity Reaction Status Date / Time metoprolol AdvReac Unknown Verified 11/11/18 14:36 Review of Systems ROS Statement: Those systems with pertinent positive or pertinent negative responses have been documented in the HPI. ROS Other: All systems not noted in ROS Statement are negative. Past Medical History Past Medical History: Hypertension, Myocardial Infarction ([place]), Prostate Disorder Last Myocardial Infarction Date:: 09/2016 History of Any Multi-Drug Resistant Organisms: None Reported Past Surgical History: Heart Catheterization, Orthopedic Surgery Additional Past Surgical History / Comment(s): right arm surgery Past Anesthesia/Blood Transfusion Reactions: No Reported Reaction Past Psychological History: No Psychological Hx Reported Smoking Status: Current every day smoker Past Alcohol Use History: None Reported Past Drug Use History: None Reported - Past Family History Father Family Medical History: Cancer Additional Family Medical History / Comment(s): prostate General Exam Limitations: no limitations General appearance: alert, in no apparent distress Head exam: Present: atraumatic Eye exam: Present: normal appearance. Absent: scleral icterus, conjunctival injection, periorbital swelling Neck exam: Present: full ROM. Absent: meningismus Respiratory exam: Absent: respiratory distress, accessory muscle use Cardiovascular Exam: Present: regular rate Left Knee exam: Present: full ROM. Absent: tenderness Lower Leg exam: Present: tenderness, swelling, abrasion, erythema. Absent: laceration, ecchymosis, deformity, crepitus, dislocation, palpable cord, Homans' sign Ankle exam: Present: full ROM, swelling. Absent: tenderness Foot/Toe exam: Present: full ROM. Absent: tenderness, swelling Neurovascular tendon exam: Present: no vascular compromise. Absent: abnormal cap refill, extremity cold to touch, foot drop Neurological exam: Present: alert, oriented X3 Psychiatric exam: Present: normal affect, normal mood Skin exam: Present: warm, dry, normal color. Absent: cyanosis, diaphoretic, petechiae, pallor Course Vital Signs 11/29/22 11/29/22 00:45 01:37 Temperature 98.1 F Pulse Rate 87 Respiratory 16 18 Rate Blood Pressure 124/85 O2 Sat by Pulse 99 Oximetry Medical Decision Making - Medical Decision Making Was pt. sent in by a medical professional or institution (, PA, STAFFING RN, urgent care, hospital, or assisted...) When possible be specific @ -No Did you speak to anyone other than the patient for history (EMS, parent, family, police, friend...)? What history was obtained from this source @ - at bedside showing pictures of the initial wound with increasing redn ess Did you review nursing and triage notes (agree or disagree)? Why? @ -I reviewed and agree with nursing and triage notes Were old charts reviewed (outside hosp., previous admission, EMS record, old EKG, old radiological studies, urgent care reports/EKG's, assisted records)? Report findings @ -No old charts were reviewed Differential Diagnosis (chest pain, altered mental status, abdominal pain women, abdominal pain men, vaginal bleeding, weakness, fever, dyspnea, syncope, headache, dizziness, GI bleed, back pain, seizure, CVA, palpatations, mental health, musculoskeletal)? @ -Cellulitis, abscess, DVT, foreign body, this is not all inclusive list EKG interpreted by me (3pts min.). @ -n/a X-rays interpreted by me (1pt min.). @ -None done CT interpreted by me (1pt min.). @ -None done U/S interpreted by me (1pt. min.). @ -yes no evidence of DVT What testing was considered but not performed or refused? (CT, X-rays, U/S, labs)? Why? @ -None What meds were considered but not given or refused? Why? @ -None Did you discuss the management of the patient with other professionals (professionals i.e. , PA, STAFFING RN, lab, RT, psych nurse, social media marketing manager, spinning room worker, teacher, admitting officer, outsole caser)? Give summary @ -No Was smoking cessation discussed for >3mins.? @ -No Was critical care preformed (if so, how long)? @ -No Were there social determinants of health that impacted care today? How? (Homelessness, low income, unemployed, alcoholism, drug addiction, transportation, low edu. Level, literacy, decrease access to med. care, [facility], rehab)? @ -No Was there de-escalation of care discussed even if they declined (Discuss DNR or withdrawal of care, Hospice)? DNR status @ -No What co-morbidities impacted this encounter? (DM, HTN, Smoking, COPD, CAD, Cancer, CVA, ARF, Chemo, Hep., AIDS, mental health diagnosis, sleep apnea, morbid obesity)? @ -Hypertension, HI Was patient admitted / discharged? Hospital course, mention meds given and route, prescriptions, significant lab abnormalities, going to OR and other pertinent info. @ -Discharged 62-year-old male presents ambulatory with family complaining of abrasion to his left calf 4 days ago on a trailer outside. Patient states that it did not rip his pants. No penetrating injury. Over the past 2 days has had increased pain and swelling of the calf with surrounding redness. Difficulty ambulating due to the pain. States his tetanus shot is not up-to-date. On physical exam there is an abrasion to the posterior aspect of left calf with surrounding erythema and swelling distally to the ankle. No purulent drainage. Tetanus shot was updated. Keflex was given in the emergency room along with a prescription. This is likely a surrounding cellulitis from an abrasion to the posterior calf. However due to the swelling and pain an ultrasound was performed to rule out DVT. That result is pending and patient did not want to wait for the result. Denies any chest pain or difficulty in breathing. Vital signs are stable. He was discharged and directed to return to the emergency room with any new or concerning symptoms including fevers, increased pain, redness or swelling. Patient and family member are agreeable to this plan of care. Directed tofollow-up primary care doctor next week. History of hypertension and HI. Undiagnosed new problem with uncertain prognosis? @ -No Drug Therapy requiring intensive monitoring for toxicity (Heparin, Nitro, Insulin, Cardizem)? @ -No Were any procedures done? @ -No Diagnosis/symptom? @ -Cellulitis Acute, or Chronic, or Acute on Chronic? @ -Acute Uncomplicated (without systemic symptoms) or Complicated (systemic symptoms)? @ -Uncomplicated Side effects of treatment? @ -No Exacerbation, Progression, or Severe Exacerbation? @ -No Poses a threat to life or bodily function? How? (Chest pain, [place], HI, pneumonia, PE, COPD, DKA, ARF, appy, cholecystitis, CVA, Diverticulitis, Homicidal, Suicidal, threat to staff... and all critical care pts) @ -No Disposition Clinical Impression: Cellulitis of left leg Disposition: HOME SELF-CARE Condition: Good Instructions (If sedation given, give patient instructions): Cellulitis (ED) Additional Instructions: Take antibiotics as prescribed. Follow-up with the primary care doctor next week. Return to the emergency room with any new or concerning symptoms including increased pain, swelling or fevers. Prescriptions: Cephalexin [Keflex] 500 mg PO Q6HR 7 Days #28 cap Is patient prescribed a controlled substance at d/c from ED?: No Referrals: Carmina Hewitt MD [Primary Care Provider] - 1-2 days Time of Disposition: 01:26
[2022-11-29 01:38] VITALS: RESP 18
--- NOTE | 2022-11-29 05:36 | US ---
EXAM: US Duplex Left Lower Extremity Veins CLINICAL HISTORY: Pain, swelling TECHNIQUE: Real-time duplex ultrasound scan of the left lower extremity veins integrating B-mode two-dimensional vascular structure, Doppler spectral analysis, color flow Doppler imaging and compression. COMPARISON: No relevant prior studies available. FINDINGS: Deep veins: No DVT in the visualized common femoral, femoral, proximal deep femoral or popliteal veins. The veins demonstrate normal color flow, are normally compressible, with normal phasic flow and/or augmentation response. Soft tissues: No acute abnormality. No popliteal cyst. IMPRESSION: No evidence of deep venous thrombosis.
== END 2022-11-29 01:45 | disposition home or self-care (01) ==
LOC: EC 00:43
DX: S80.812A Abrasion, left lower leg, initial encounter (principal); L03.116 Cellulitis of left lower limb; I10 Essential (primary) hypertension; I25.2 Old myocardial infarction; F17.200 Nicotine dependence, unspecified, uncomplicated; Z23 Encounter for immunization; Z88.8 Allergy status to other drugs, medicaments and biological substances; Z79.899 Other long term (current) drug therapy; W22.8XXA Striking against or struck by other objects, initial encounter
CPT/HCPCS: 90471; 90715; 99283

== ENCOUNTER → 2023-07-31 | Outpatient (CLI) | payer OTHER ==
[2023-07-31 19:56] LABS: ALT 20 U/L (10-49); AST 20 U/L (14-35); Chol/HDL Ratio 2.88 Ratio; LDL Cholesterol,Calculated 98.9 mg/dL (0.0-131.0); VLDL Calculation 10.66 mg/dL (5.00-40.00)
== END | disposition home or self-care (01) ==
LOC: LABWHC1 13:59
PROVIDERS: ATTEND Internal Medicine Interventional Cardiology
DX: E78.2 Mixed hyperlipidemia (principal)
CPT/HCPCS: 36415; 80061; 84450; 84460

== ENCOUNTER → 2023-10-10 | Outpatient (CLI) | payer OTHER ==
[2023-10-10 14:28] VITALS: BP 111/74; PULSE 75; RESP 17; TEMP 98.7
--- NOTE | 2023-10-11 09:46 | P.GSCN ---
History of Present Illness Consult date: 10/11/23 Reason for Consult: mass left breast Requesting physician: Carmina Hewitt History of present illness: Guilherme is a 63-year-old male who states for approximately 2 years he has had a mass in his left breast in the upper inner quadrant area. This has increased in size. It is not painful. He states that the area was resected approximately 10 years ago but it returned. He was told at that time it was a fatty tumor. He denies any testicular masses. He had not had any breast imaging done. Any trauma or infection in the breast. review note Dr. Moncada 08-09-23 Caffeine: Negative Nicotine: A half a pack per day for 30 years Chocolate: Every other day Family history: Father: Prostate/pancreatic cancer Paternal grandfather: Lung cancer, smoker Paternal aunt: Breast cancer Paternal aunt: Lung cancer Social history: Nicotine: Half pack per day for 30 years Alcohol: Negative Drugs: Negative Medical history: Hypertension Surgical history: Left breast mass orthopedic surgery Hernia surgery as a child lost his left testicle Cardiac catheterization Review of Systems - Constitutional Denies fever, Denies weight loss - EENT Eyes: denies blurred vision Ears, nose, mouth and throat: Denies dysphagia - Cardiovascular Cardiovascular Comment(s): Dr. 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 Reports as per HPI - Musculoskeletal Reports as per HPI - Integumentary Reports as per HPI - Neurological Denies headaches, Denies syncope - Psychiatric Reports as per HPI - Endocrine Reports as per HPI - Hematologic/Lymphatic Denies easy bleeding, Denies easy bruising Past Medical History Past Medical History: Hypertension, Myocardial Infarction ([place]), Prostate Disorder Last Myocardial Infarction Date:: 09/2016 History of Any Multi-Drug Resistant Organisms: None Reported Past Surgical History: Heart Catheterization, Orthopedic Surgery Additional Past Surgical History / Comment(s): right arm surgery Past Anesthesia/Blood Transfusion Reactions: No Reported Reaction Past Psychological History: No Psychological Hx Reported Smoking Status: Current every day smoker Past Alcohol Use History: None Reported Past Drug Use History: None Reported - Past Family History Father Family Medical History: Cancer Additional Family Medical History / Comment(s): prostate Medications and Allergies Home Medications Medication Instructions Recorded Confirmed Type Dutasteride [Avodart] 0.5 mg PO HS 10/07/16 10/10/23 History cloNIDine HCL [Catapres] 0.1 mg PO HS 10/07/16 10/10/23 History amLODIPine BESYLATE/BENAZEPRIL 1 cap PO DAILY #30 capsule 11/12/18 10/10/23 Rx [Lotrel 5-10 MG] carvediloL [Coreg] 3.125 mg PO BID #60 tablet 11/12/18 10/10/23 Rx hydroCHLOROthiazide [Hydrodiuril] 12.5 mg PO DAILY #30 cap 11/12/18 10/10/23 Rx Allergies Allergy/AdvReac Type Severity Reaction Status Date / Time metoprolol AdvReac Unknown Verified 10/10/23 14:24 Surgical - Exam Vital Signs Temp Pulse Resp BP Pulse Ox 98.7 F 75 17 111/74 97 10/10/23 14:25 10/10/23 14:25 10/10/23 14:10/10/23 14:25 10/10/23 14:25 - General no distress - Eyes normal ocular movement - ENT no hearing loss - Neck trachea midline - Respiratory normal respiratory effort, clear to auscultation - Cardiovascular Heart Sounds: normal: S1, S2 - Abdomen Abdomen: soft, non tender, no guarding, no rigid, no rebound - Genitourinary left: testicle absent (No masses right testicle) - Integumentary no rash, no abnormal pigmentation - Neurologic no disoriented, no combative - Musculoskeletal normal gait, normal posture - Psychiatric oriented to time, oriented to person, oriented to place, speech is normal, memory intact Breast Exam: Inspection: There is a mass in the left breast in the upper inner quadrant area Palpation: Right breast: Multi positional exam no dominant masses or nodules of concern Right axilla: No adenopathy of concern Left breast: Firm mass with some skin changes over the mass in the upper inner quadrant of the left breast this is approximately 3 x 3 cm in size no other masses or nodules of concern Left axilla: No adenopathy of concern Results Ultrasound of the breast was ordered the results are pending Assessment and Plan Assessment: Impression: Left breast mass Absent left testicle Cardiac disease Nicotine dependence Plan: Ultrasound of the left breast to evaluate the mass/this was done but results are pending Ultrasound-guided core biopsy left breast mass Follow-up after ultrasound-guided core biopsy CC: Dr. Luz Elena Brewer
== END ==
LOC: WWCWWP 14:14
PROVIDERS: ATTEND Surgery
DX: N63.22 Unspecified lump in the left breast, upper inner quadrant (principal); F17.210 Nicotine dependence, cigarettes, uncomplicated; Q55.0 Absence and aplasia of testis; I11.9 Hypertensive heart disease without heart failure; Z80.3 Family history of malignant neoplasm of breast; Z88.8 Allergy status to other drugs, medicaments and biological substances; Z79.899 Other long term (current) drug therapy

== ENCOUNTER → 2023-10-10 | Outpatient (CLI) | payer OTHER ==
--- NOTE | 2023-10-11 11:34 | USB ---
Reason for Exam: Clinical finding. Technique: Method: Targeted. Findings: The whole breast of both breasts, the axilla of both breasts and the retroareolar of both breasts were scanned. A complete US of all four quadrants of both breasts, axilla, and retro-areolar region were reviewed. At the 10:00 position left breast, 7 cm from the nipple, there is a large lobulated heterogeneous mass measuring 4.7 x 2.2 x 4.1 cm. Internal vascularity is demonstrated. We notice similar sized mass on the patient's 11/11/[address] Tissue sampling recommended. No other solid or cystic lesion or axillary lymphadenopathy. Overall Assessment: Suspicious, BI-RAD 4 Management: Ultrasound Core Biopsy of the left breast. Note that the mass was also present back in 2019. This would favor a benign etiology. Results were given to the patient verbally at the time of exam. Electronically signed and approved by: Braxton Mckinney M.D. Radiologist
== END | disposition home or self-care (01) ==
LOC: RADUSWWP 14:57
PROVIDERS: ATTEND Surgery
DX: N63.10 Unspecified lump in the right breast, unspecified quadrant (principal); N63.20 Unspecified lump in the left breast, unspecified quadrant

== ENCOUNTER → 2023-10-24 | Outpatient (CLI) | payer OTHER ==
--- NOTE | 2023-10-28 11:36 | MM ---
Reason for Exam: Clinical finding. Patient History: 2003, US discontinued breast core LT on the left side. Paternal aunt had breast cancer, age 45. Tissue Density: The breasts are almost entirely fatty. Findings: Analyzed By CAD. There is a large lobular mass within the upper inner aspect left breast. Additional evaluation with ultrasound is recommended. No suspicious subareolar abnormality evident. A few benign calcifications. Bilateral breasts. Overall Assessment: Incomplete: need additional imaging evaluation, BI-RAD 0 Management: Diagnostic Breast Ultrasound of the left breast. A negative mammogram report should not preclude additional follow up of suspicious palpable abnormalities. Patient should continue monthly self breast exam. A clinical breast exam by your physician is recommended on an annual basis and results should be correlated with mammographic findings. Note on Emy scores and lifetime risk: 1. A Emy score greater than 3% is considered moderate risk. If this is the case, consider specialist referral to assess eligibility for a risk reducing agent. 2. If overall lifetime risk for the development of breast cancer is 20% or higher, the patient may qualify for future screening with alternating mammogram and breast MRI. Electronically signed and approved by: Hamlet Abreu D.O. Radiologis
== END | disposition home or self-care (01) ==
LOC: RADMAMWWP 10:46
PROVIDERS: ATTEND Surgery
DX: N63.21 Unspecified lump in the left breast, upper outer quadrant (principal); R92.342 Mammographic extreme density, left breast
CPT/HCPCS: 77066; G0279; 77062

== ENCOUNTER → 2023-11-06 | Day surgery (SDC) | payer OTHER ==
--- NOTE | 2023-12-11 09:19 | USB ---
Prior Study Comparison: 10/10/2023 Bilateral US breast limited [facility]. 10/24/2023 Bilateral MG 3D diag mammo w/cad [facility]. Pathology Description: Location: 10 o'clock. Marker Left Behind. Needle Type: Celero Cores: 7 Gauge: 12 The procedure of ultrasound guided core biopsy was explained to the patient. Benefits, alternatives, and risks were discussed. An informed consent was then obtained. The patient was placed in supine positioning for imaging and for the procedure. The overlying skin was prepped and draped in usual sterile fashion. Lidocaine buffered with bicarbonate was used as anesthetic into the skin and subcutaneous tissue up to area of concern in the left 10:00 breast. A kelly was made with surgical scalpel. Under ultrasound guidance, a 12-gauge vacuum assisted biopsy gun device was used to obtain 7 core samples. Samples obtained were quite bloody. Following this, a biopsy clip was left in lesion. The patient tolerated the procedure well without any immediate complication. The patient was kept in the radiology department for short stay after the procedure and then discharged home in stable condition. Postprocedure mammogram: The patient was transferred to mammography for physician ordered post procedure mammogram for clip placement verification. Impression: Successful, uncomplicated ultrasound guided core biopsy of area of concern in the left breast, full pathology results to follow. Pathology Results: Result: Benign, Hemangioma. Pathology and radiology were reviewed. Findings are concordant. LEFT BREAST, TEN O'CLOCK, ULTRASOUND GUIDED CORE BIOPSY: Benign hemangioma. Overall Assessment: Benign Management: Diagnostic Breast Ultrasound of the left breast in 6 months. Electronically signed and approved by: Janes Means M.D. Radiologis
== END ==
LOC: RADUSWWP 12:54
PROVIDERS: ATTEND Surgery
DX: R92.8 Other abnormal and inconclusive findings on diagnostic imaging of breast
CPT/HCPCS: 88305; 19083; A4648

== ENCOUNTER → 2023-12-26 | Outpatient (CLI) | payer OTHER ==
[2023-12-26 10:05] VITALS: BP 117/81; PULSE 81; RESP 17; TEMP 98.1
--- NOTE | 2023-12-26 10:33 | P.PN ---
Subjective Progress Note Date: 12/26/23 Principal diagnosis: hemangioma left breast mass left breast Requesting physician: Carmina Hewitt History of present illness: Guilherme is a 63-year-old male who states for approximately 2 years he has had a mass in his left breast in the upper inner quadrant area. This has increased in size. It is not painful. He states that the area was resected approximately 10 years ago but it returned. He was told at that time it was a fatty tumor. He denies any testicular masses. He had not had any breast imaging done. Any trauma or infection in the breast. core biopsy left breast lesion on 11-06-23 benign hemangioma Caffeine: Negative Nicotine: A half a pack per day for 30 years Chocolate: Every other day Family history: Father: Prostate/pancreatic cancer Paternal grandfather: Lung cancer, smoker Paternal aunt: Breast cancer Paternal aunt: Lung cancer Social history: Nicotine: Half pack per day for 30 years Alcohol: Negative Drugs: Negative Medical history: Hypertension Surgical history: Left breast mass orthopedic surgery Hernia surgery as a child lost his left testicle Cardiac catheterization Review of Systems - Constitutional Denies fever, Denies weight loss - EENT Eyes: denies blurred vision Ears, nose, mouth and throat: Denies dysphagia - Cardiovascular Cardiovascular Comment(s): Dr. 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 Reports as per HPI - Musculoskeletal Reports as per HPI - Integumentary Reports as per HPI - Neurological Denies headaches, Denies syncope - Psychiatric Reports as per HPI - Endocrine Reports as per HPI - Hematologic/Lymphatic Denies easy bleeding, Denies easy bruising Past Medical History Past Medical History: Hypertension, Myocardial Infarction ([place]), Prostate Disorder Last Myocardial Infarction Date:: 09/2016 History of Any Multi-Drug Resistant Organisms: None Reported Past Surgical History: Heart Catheterization, Orthopedic Surgery Additional Past Surgical History / Comment(s): right arm surgery Past Anesthesia/Blood Transfusion Reactions: No Reported Reaction Past Psychological History: No Psychological Hx Reported Smoking Status: Current every day smoker Past Alcohol Use History: None Reported Past Drug Use History: None Reported - Past Family History Father Family Medical History: Cancer Additional Family Medical History / Comment(s): prostate Medications and Allergies Home Medications Medication Instructions Recorded Confirmed Type Dutasteride [Avodart] 0.5 mg PO HS 10/07/16 10/10/23 History cloNIDine HCL [Catapres] 0.1 mg PO HS 10/07/16 10/10/23 History amLODIPine BESYLATE/BENAZEPRIL 1 cap PO DAILY #30 capsule 11/12/18 10/10/23 Rx [Lotrel 5-10 MG] carvediloL [Coreg] 3.125 mg PO BID #60 tablet 11/12/18 10/10/23 Rx hydroCHLOROthiazide [Hydrodiuril] 12.5 mg PO DAILY #30 cap 11/12/18 10/10/23 Rx Allergies Allergy/AdvReac Type Severity Reaction Status Date / Time metoprolol AdvReac Unknown Verified 10/10/23 14:24 Objective - Vital Signs Vital signs: Vital Signs Temp 98.1 F 12/26/23 10:03 Pulse 81 12/26/23 10:03 Resp 17 12/26/23 10:03 BP 117/81 12/26/23 10:03 Pulse Ox 97 12/26/23 10:03 FiO2 Intake & Output 12/25/23 12/26/23 12/26/23 18:59 06:59 18:59 Weight 90.718 kg - Constitutional General appearance: Present: cooperative - EENT Eyes: Present: EOMI ENT: Present: hearing grossly normal - Neck Neck: Present: normal ROM - Respiratory Respiratory: bilateral: CTA - Cardiovascular Heart sounds: normal: S1, S2 - Integumentary Integumentary: Present: normal turgor - Musculoskeletal Musculoskeletal: Present: gait normal - Psychiatric Psychiatric: Present: A&O x's 3, appropriate affect, intact judgment & insight - Additional findings Additional findings: Breast Exam: Inspection: There is a mass in the left breast in the upper inner quadrant area Palpation: Right breast: Multi positional exam no dominant masses or nodules of concern Right axilla: No adenopathy of concern Left breast: Firm mass with some skin changes over the mass in the upper inner quadrant of the left breast this is approximately 3 x 3 cm in size no other masses or nodules of concern; biopsy site clean and dry Left axilla: No adenopathy of concern Assessment and Plan Assessment: Impression: Left breast mass/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 Luz Elena Moncada CC: Dr. Luz Elena Brewer
== END ==
LOC: WWCWWP 09:47
PROVIDERS: ATTEND Surgery
DX: N63.22 Unspecified lump in the left breast, upper inner quadrant (principal); F17.210 Nicotine dependence, cigarettes, uncomplicated; D18.09 Hemangioma of other sites; Q55.0 Absence and aplasia of testis; I11.9 Hypertensive heart disease without heart failure; Z80.3 Family history of malignant neoplasm of breast; Z88.8 Allergy status to other drugs, medicaments and biological substances; Z79.899 Other long term (current) drug therapy

== ENCOUNTER → 2024-01-16 | Outpatient (CLI) | payer OTHER ==
--- NOTE | 2024-01-16 12:31 | P.PN ---
Subjective Progress Note Date: 01/16/24 Principal diagnosis: hemangioma left breast hemangioma left breast mass left breast Requesting physician: Carmina Hewitt History of present illness: Guilherme is a 63-year-old male who states for approximately 2 years he has had a mass in his left breast in the upper inner quadrant area. This has increased in size. It is not painful. He states that the area was resected approximately 10 years ago but it returned. He was told at that time it was a fatty tumor. He denies any testicular masses. He had not had any breast imaging done. Any trauma or infection in the breast. core biopsy left breast lesion on 11-06-23 benign hemangioma awaiting clearance from medicine Caffeine: Negative Nicotine: A half a pack per day for 30 years Chocolate: Every other day Family history: Father: Prostate/pancreatic cancer Paternal grandfather: Lung cancer, smoker Paternal aunt: Breast cancer Paternal aunt: Lung cancer Social history: Nicotine: Half pack per day for 30 years Alcohol: Negative Drugs: Negative Medical history: Hypertension Surgical history: Left breast mass orthopedic surgery Hernia surgery as a child lost his left testicle Cardiac catheterization Review of Systems - Constitutional Denies fever, Denies weight loss - EENT Eyes: denies blurred vision Ears, nose, mouth and throat: Denies dysphagia - Cardiovascular Cardiovascular Comment(s): Dr. 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 Reports as per HPI - Musculoskeletal Reports as per HPI - Integumentary Reports as per HPI - Neurological Denies headaches, Denies syncope - Psychiatric Reports as per HPI - Endocrine Reports as per HPI - Hematologic/Lymphatic Denies easy bleeding, Denies easy bruising Past Medical History Past Medical History: Hypertension, Myocardial Infarction ([place]), Prostate Disorder Last Myocardial Infarction Date:: 09/2016 History of Any Multi-Drug Resistant Organisms: None Reported Past Surgical History: Heart Catheterization, Orthopedic Surgery Additional Past Surgical History / Comment(s): right arm surgery Past Anesthesia/Blood Transfusion Reactions: No Reported Reaction Past Psychological History: No Psychological Hx Reported Smoking Status: Current every day smoker Past Alcohol Use History: None Reported Past Drug Use History: None Reported - Past Family History Father Family Medical History: Cancer Additional Family Medical History / Comment(s): prostate Medications and Allergies Home Medications Medication Instructions Recorded Confirmed Type Dutasteride [Avodart] 0.5 mg PO HS 10/07/16 10/10/23 History cloNIDine HCL [Catapres] 0.1 mg PO HS 10/07/16 10/10/23 History amLODIPine BESYLATE/BENAZEPRIL 1 cap PO DAILY #30 capsule 11/12/18 10/10/23 Rx [Lotrel 5-10 MG] carvediloL [Coreg] 3.125 mg PO BID #60 tablet 11/12/18 10/10/23 Rx hydroCHLOROthiazide [Hydrodiuril] 12.5 mg PO DAILY #30 cap 11/12/18 10/10/23 Rx Allergies Allergy/AdvReac Type Severity Reaction Status Date / Time metoprolol AdvReac Unknown Verified 10/10/23 14:24 Objective - Constitutional General appearance: Present: cooperative - EENT Eyes: Present: EOMI ENT: Present: hearing grossly normal - Neck Neck: Present: normal ROM - Respiratory Respiratory: bilateral: CTA - Cardiovascular Rhythm: regular Heart sounds: normal: S1, S2 - Integumentary Integumentary: Present: normal turgor - Musculoskeletal Musculoskeletal: Present: gait normal - Psychiatric Psychiatric: Present: A&O x's 3, appropriate affect, intact judgment & insight - Additional findings Additional findings: Breast Exam: Inspection: There is a mass in the left breast in the upper inner quadrant area Palpation: Right breast: Multi positional exam no dominant masses or nodules of concern Right axilla: No adenopathy of concern Left breast: Firm mass with some skin changes over the mass in the upper inner quadrant of the left breast this is approximately 3 x 3 cm in size no other masses or nodules of concern; biopsy site clean and dry Left axilla: No adenopathy of concern Assessment and Plan Assessment: Impression: Left breast mass/symptomatic left breast hamangioma Absent left testicle Cardiac disease Nicotine dependence Plan: clearance from Dr. Lyle excisional lumpectomy of mass left breast consider consult with vascular surgery proir to resection clearance DR. Luz Elena Moncada CC: Dr. Luz Elena Brewer
[2024-01-16 13:00] VITALS: BP 117/81; PULSE 66; RESP 17; TEMP 97.8
== END ==
LOC: WWCWWP 11:49
PROVIDERS: ATTEND Surgery
DX: N63.22 Unspecified lump in the left breast, upper inner quadrant (principal); Q55.0 Absence and aplasia of testis; I51.9 Heart disease, unspecified; F17.210 Nicotine dependence, cigarettes, uncomplicated; Z80.3 Family history of malignant neoplasm of breast; Z88.8 Allergy status to other drugs, medicaments and biological substances

== ENCOUNTER 2024-01-21 06:32 | Day surgery (SDC) | payer OTHER ==
[~2024-01-21 06:32] MED LIST changes: -ALPRAZolam 0.25 MG TAB PO PRN; -ALPRAZolam 0.5 MG TAB PO PRN; -ASPIRIN 325 MG TAB PO STA; -ATORVASTATIN 80 MG TAB PO STA; -CARVEDILOL 3.125 MG TAB PO ONE; -CARVEDILOL 3.125 MG TAB PO STA; -IOHEXOL 350 MG/ML 125ML BOTTLE INJ ONE; -LIDOCAINE 2% INJ 20 MG/ML (20 ML MDV) ONE; -LIDOCAINE 2% INJ 20 MG/ML SQ ONE; -MIDAZOLAM 2 MG/2 ML VIAL IV ONE; -MIDAZOLAM 2 MG/2 ML VIAL ONE; -NITROGLYCERIN 1000MCG/10ML SYRINGE INTRACORON ONE; -NITROGLYCERIN SL TABS 0.4 MG TAB SUBLINGUAL PRN; +Pre Op ABX Message 1 EACH MISC MISCELLANE ONE; -RX INFO: IV CONTRAST WAS GIVEN 1 EACH MISC MISCELLANE PRN; +SCOPOLAMINE 1 MG/72 HR PATCH TRANSDERM ONE; -SODIUM CHLORIDE 0.9% 1,000 ML IV SCH; -SODIUM CHLORIDE 0.9% 1,000 ML in EMPTY BAG 1 BAG IV ONE; -fentaNYL (PF) 50 MCG/ML 2 ML AMP ONE
[2024-01-21] MEDS ORDERED: MIDAZOLAM 2 MG/2 ML VIAL IV PRN (07:00)
[2024-01-21] MEDS ORDERED: HYDROmorphone 0.5 MG/0.5 ML SYRINGE IVP PRN (07:00)
[2024-01-21] MEDS: LACTATED RINGERS 1,000 ML IV ONE (07:03)
[2024-01-21] MEDS: LACTATED RINGERS 1,000 ML IV SCH (07:17)
[2024-01-21] MEDS: ONDANSETRON 4 MG/2 ML VIAL IVP ONE (07:22)
[2024-01-21] MEDS: DEXAMETHASONE SOD PHOSPHATE 4 MG/ML 1 ML VIAL IV ONE (07:22)
[2024-01-21] MEDS: HEPARIN SODIUM,PORCINE 5,000 UNIT/ML 1 ML VIAL SQ PRN (07:23)
[2024-01-21] MEDS: ACETAMINOPHEN TAB 500 MG TAB PO PRN (07:23)
[2024-01-21 07:28] LABS: Basophils % (A) 1 %; Eosinophils # (A) 0.4 k/uL (0-0.7); Eosinophils % (A) 6 %; HCT 44.6 % (39.0-53.0); HGB 14.5 gm/dL (13.0-17.5); Lymphocytes % (A) 30 %; MCH 31.7 pg (25.0-35.0); MCHC 32.5 g/dL (31.0-37.0); MCV 97.4 fL (80.0-100.0); Mean Platelet Volume 7.1; Monocytes # (A) 0.5 k/uL (0-1.0); Monocytes % (A) 8 %; Neutrophils # (A) 3.6 k/uL (1.3-7.7); Neutrophils % (A) 52 %; Platelet Count 228 k/uL (150-450); RBC 4.58 m/uL (4.30-5.90); RDW 12.5 % (11.5-15.5); WBC 6.8 k/uL (3.8-10.6)
[2024-01-21 07:40] LABS: African American GFR (CKD) 88 (>60 ml/min/1.73 sqM); Anion Gap 5 mmol/L; Blood Urea Nitrogen 24 mg/dL (9-20); Calcium 9.1 mg/dL (8.4-10.2); Carbon Dioxide 29 mmol/L (22-30); Chloride 104 mmol/L (98-107); Glucose 98 mg/dL (74-99); Non-African American GFR(CKD) 76 (>60 ml/min/1.73 sqM); Sodium 138 mmol/L (137-145)
[2024-01-21 07:52] LABS: Potassium 4.3 mmol/L (3.5-5.1)
[2024-01-21] MEDS ORDERED: PHENYLEPHRINE-0.9% NACL SYG 1,000 MCG/10 ML SYRINGE ONE (08:47)
[2024-01-21] MEDS ORDERED: fentaNYL (PF) 50 MCG/ML 2 ML AMP ONE (08:47)
[2024-01-21] MEDS ORDERED: MIDAZOLAM 2 MG/2 ML VIAL ONE (08:47)
[2024-01-21] MEDS ORDERED: PROPOFOL 10 MG/ML 20 ML VIAL IV ONE (08:47)
[2024-01-21] MEDS ORDERED: LIDOCAINE 1% INJ 10MG/ML (20 ML MDV) ONE (08:47)
[2024-01-21] MEDS ORDERED: ePHEDrine 50 MG/ML 1 ML VIAL ONE (08:47)
[2024-01-21] MEDS ORDERED: WATER FOR INJECTION, STERILE 10 ML VIAL IV ONE (08:47)
[2024-01-21] MEDS: SODIUM CHLORIDE 0.9% 100 ML with ceFAZolin 2,000 MG IV ONE (08:51)
[2024-01-21] MEDS: LIDOCAINE 1% INJ 10MG/ML (20 ML MDV) SQ ONE ×2 (09:49→10:00)
--- NOTE | 2024-01-21 10:11 | P.BCAON ---
Date of Procedure: 01/21/24 Preoperative Diagnosis: hemagioma left breast Postoperative Diagnosis: same Procedure(s) Performed: resection of hemangioma left breast 6 by 6.5 cm Anesthesia: MONIKA Surgeon: Yanique Bonner Estimated Blood Loss (ml): 5 IV fluids (ml): 750 Pathology: other (lesion left breast) Operative Findings: vascular lesion left breast Description of Procedure: Following induction of general anesthesia the left breast was prepped and drapped in the normal fashion. An incision was made under the lesion. Wide resection in the surrounding tissue was preformed. The posterior dissection was unto the pectoralis muscle. The anterior dissection was very close under the skin, with a small portion of skin taken anteriorely. Hemastatis was achieved using the bovi and the harmonic device. after the lesion was resected the wound was well irrigated. After we were assured that hemaststis was attained, surgicell in powder form was placed. The wound was closed using deep vicryl and superficial monicryl sutures. 10 cc of 1 % lidocaine was placed. The patient tolerated the procedure in stable condition.
[2024-01-21 10:18] VITALS: TEMP 97
[2024-01-21 10:36] VITALS: RESP 16
[2024-01-21 11:17] VITALS: BP 112/72; PULSE 72
== END 2024-01-21 11:40 | disposition home or self-care (01) ==
LOC: OR 06:32
PROVIDERS: ATTEND Surgery
CPT/HCPCS: 80048; 85025; 88307

== ENCOUNTER → 2024-01-23 | Outpatient (CLI) | payer OTHER ==
[2024-01-23 13:10] VITALS: BP 121/86; PULSE 83; RESP 17; TEMP 98.5
--- NOTE | 2024-01-23 13:17 | P.BCPO ---
Progress Note - Text Progress Note Date: 01/23/24 Guilherme is status post resection of lesion in the right breast on 01-21-24. Pathology is pending. He does have some minimal swelling at the site which is most likely consistent with a seroma. Examination: Lungs: Clear Heart: Regular rate and rhythm Incision: Clean and dry, the superior aspect of the incision there was some necrosis of the skin at the time of surgery and two nylon sutures are in place Have a small seroma at the site of the resection Impression: Small seroma at site of resection Minimal skin necrosis superior to the area of resection where vessels were growing out through the area of the skin prior to resection Plan: Aspiration seroma Follow-up 1 week CC: Dr. Hewitt
== END ==
LOC: WWCWWP 12:15
PROVIDERS: ATTEND Surgery

== ENCOUNTER → 2024-01-31 | Outpatient (CLI) | payer OTHER ==
[2024-01-31 09:01] VITALS: BP 120/81; PULSE 87; RESP 17; TEMP 98.9
--- NOTE | 2024-01-31 09:27 | P.BCPO ---
Progress Note - Text Progress Note Date: 01/31/24 Progress Note - Text Progress Note Date: 01/31/24 Guilherme is status post resection of lesion in the right breast on 01-21-24. Pathology is benign hemangioma. He does have some minimal swelling at the site which is most likely consistent with a seroma. Examination: Lungs: Clear Heart: Regular rate and rhythm Incision: Clean and dry, the superior aspect of the incision there was some necrosis of the skin at the time of surgery and two nylon sutures are in place Have a small seroma at the site of the resection, mild drythema over the site of resection Impression: Small seroma at site of resection Minimal skin necrosis superior to the area of resection where vessels were growing out through the area of the skin prior to resection seroma left biopsy cavity. Following informed consent the area was prepped using alcohol. An 18-gauge needle and a 60 cc syringe was used to aspirate 10 cc of chocolate colored fluid. No evidence of any active bleeding. The patient tolerated this in stable condition. Plan: Aspiration seroma Follow-up 2 weeks keflex 500 po QID # 20 CC: Dr. Hewitt Additional CC's: Carmina Hewitt Post Op Education - Post Op Education Post Op Education Provided Date: 01/31/24 - Functional Assessment Performed?: Yes (arm abduction no difficul) Referal Provided?: No Path Report - Was patient given path report? Path Report Date Given: 01/31/24
== END ==
LOC: WWCWWP 08:36
PROVIDERS: ATTEND Surgery

== ENCOUNTER → 2024-02-13 | Outpatient (CLI) | payer OTHER ==
--- NOTE | 2024-02-13 11:52 | P.PN ---
Subjective Progress Note Date: 02/13/24 02/13/24 Guilherme is status post resection of lesion in the right breast on 01-21-24. Pathology is benign hemangioma. He does have some minimal necrosis of the skin at the site. Examination: Lungs: Clear Heart: Regular rate and rhythm Incision: Clean and dry, there is some necrosis noted just superior to the incision where the hemangioma had been protruding into the subcutaneous tissue/into the skin. No evidence of any infection Impression: debridement area of concern skin necrosis superior to the area of resection where vessels were growing out through the area of the skin prior to resection Following informed consent the area of the necrosis was prepped using chlorhexidine. It was debrided. The wound was approximately 1-1/2 x 2 cm in size. The depth is down to the pectoralis muscle. The area was packed using iodoform gauze. Plan: Follow-up 2 weeks Patient's daughter is a nurse practitioner and the case was discussed with her, she is going to help her parents Home health care is being consulted Patient's is given instructions on changing the packing plan is for iodoform ordered form gauze packing to be changed daily follow up sooner any questions or concerns CC: Dr. Hewitt
[2024-02-13 11:58] VITALS: BP 129/86; PULSE 87; RESP 16; TEMP 98.7
== END ==
LOC: WWCWWP 11:32
PROVIDERS: ATTEND Surgery
DX: I96 Gangrene, not elsewhere classified (principal); F17.200 Nicotine dependence, unspecified, uncomplicated; Z98.890 Other specified postprocedural states; Z88.8 Allergy status to other drugs, medicaments and biological substances

== ENCOUNTER → 2024-02-27 | Outpatient (CLI) | payer OTHER ==
[2024-02-27 14:58] VITALS: BP 130/84; PULSE 76; RESP 16; TEMP 98.9
--- NOTE | 2024-02-27 15:04 | P.PN ---
Subjective Progress Note Date: 02/27/24 02-27-24 Guilherme is status post resection of lesion in the right breast on 01-21-24. Pathology is benign hemangioma. He does have some minimal necrosis of the skin at the site. Examination: Lungs: Clear Heart: Regular rate and rhythm Incision: Clean and dry, 1.5 x 1 cm area of wound which is being packed this is clean and dry No evidence of any infection Impression: Continue present wound care/packing changed Plan: Follow-up 4 weeks Patient's daughter is a nurse practitioner and the case was discussed with her, she is going to help her parents Home health care has been consulted coming on Saturday adn Patient's is given instructions on changing the packing plan is for iodoform ordered form gauze packing to be changed daily follow up sooner any questions or concerns CC: Dr. Hewitt Objective - Vital Signs Vital signs: Vital Signs Temp 98.9 F 02/27/24 14:56 Pulse 76 02/27/24 14:56 Resp 16 02/27/24 14:56 BP 130/84 02/27/24 14:56 Pulse Ox 96 02/27/24 14:56 FiO2 Intake & Output 02/26/24 02/27/24 02/27/24 18:59 06:59 18:59 Weight 90.718 kg
== END ==
LOC: WWCWWP 14:45
PROVIDERS: ATTEND Surgery
DX: D18.09 Hemangioma of other sites (principal); I96 Gangrene, not elsewhere classified; F17.200 Nicotine dependence, unspecified, uncomplicated; Z98.890 Other specified postprocedural states; Z88.8 Allergy status to other drugs, medicaments and biological substances